=== PATIENT | female | born 1945 ===

== ENCOUNTER 2018-11-30 10:33 | Emergency (ER) | payer MEDICARE, OTHER ==
[~2018-11-30 10:33] MED LIST: ACET-1966 PO; CEPH250C37 PO; FLUC200T56 PO; IBUP-56 PO; PENI-24 PO; POTA20TA10 PO; VALA500T63 PO
[2018-11-30] MEDS ORDERED: MORPHINE 2 MG/ML SYR IVP ONE (11:15)
[2018-11-30] MEDS ORDERED: LR(*) 1000 ML BAG 1,000 ML IV ONE (11:15)
--- NOTE | 2018-11-30 11:20 | ER Report ---
History and Physical Time Seen By MD: 10:55 Hx. of Stated Complaint: Patient sent from Cancer center for evaluation for weakness after a liter of fluid was given there. Severe two week history of diarrhea. HPI/ROS CHIEF COMPLAINT: Abdominal pain, diarrhea HISTORY OF PRESENT ILLNESS: Patient is 73-year-old female with history of Hodgkin lymphoma diagnosed in 2016 on her second cycle of ice chemotherapy. Last chemotherapy was November 03. Soon after chemotherapy, patient relates that she developed lower abdominal/pelvic pain that has been persistent and severe. She was seen on 13 November but this pain has not been further evaluated. Approximately 10 days ago she developed diarrhea and fecal incontinence. This has progressed to the point the patient now wears a diaper at all times which she has to change hourly. Pain does not change with diarrhea. The stool is not bloody or black but is malodorous. Patient denies change in urination and denies vaginal bleeding. She has a history of hysterectomy. She has not had fevers or chills, chest pain or trouble breathing. She has been nauseous but no vomiting. She has taken by mouth intake but has become increasingly fatigued and weak. She lives in [place] and drove here today to be seen at the oncology clinic where she received 1 L of IV fluid and when she did not appear better was transferred here for further evaluation. REVIEW OF SYSTEMS: Constitutional: No fever, no chills. Eyes: No discharge. ENT: dry mouth Cardiovascular: No chest pain, no palpitations. Respiratory: No cough, no shortness of breath. Gastrointestinal: above Genitourinary: dark, but not painful urination. Musculoskeletal: no new back pain Skin: skin peeling on hands, experienced after chemo Neurological: generalized, but no focal weakness Remainder of the 14 system rev: Yes Allergies: Coded Allergies: No Known Drug Allergies (Unverified , 06/23/13) Home Meds Active Scripts Na Phos,M-B/Na Phos,Di-Ba (FLEET ENEMA) 133 Ml Enema, 133 ML RC DAILY for 2 Days, #2 BOTTLE Prov:HAIR AGOSTO MD 11/30/18 Reported Medications Ibuprofen (IBUPROFEN) 200 Mg Tablet, 2 TAB PO Q6H, TAB 11/30/18 Acetaminophen (TYLENOL) 325 Mg Tablet, 650 MG PO Q6H, TAB 11/30/18 Fluconazole (FLUCONAZOLE) 200 Mg Tablet, 200 MG PO QDAY 11/30/18 Valacyclovir Hcl (VALACYCLOVIR) 500 Mg Tablet, 500 MG PO BID 11/30/18 Penicillin V Potassium 500 Mg Tab (PENICILLIN V POTASSIUM 500 MG TAB) 500 Mg Tablet, 500 MG PO BID, TAB 11/30/18 Potassium Chloride (Potassium Chloride) 20 Meq Tablet.er, PO BID 11/30/18 Reviewed Nurses Notes: Yes Old Medical Records Reviewed: Yes Hx Smoking: Yes Exposure to Second Hand Smoke?: No Hx Substance Use Disorder: No Hx Alcohol Use: No Constitutional Vital Sign - Last 24 Hours 11/30/18 11/30/18 11/30/18 11/30/18 10:43 10:45 11:00 11:15 Temp 97.4 Pulse 51 52 56 57 Resp 16 B/P (MAP) 150/81 133/66 (88) Pulse Ox 96 95 94 98 O2 Delivery Room Air 11/30/18 11/30/18 11/30/18 11/30/18 11:30 11:45 12:45 13:00 Pulse 53 57 55 B/P (MAP) 128/83 (98) 147/76 (99) Pulse Ox 93 92 91 11/30/18 11/30/18 11/30/18 13:15 13:30 13:45 Pulse 54 55 56 B/P (MAP) 141/71 (94) Pulse Ox 91 95 94 Physical Exam General Appearance: The patient is alert, has no immediate need for airway protection and no signs of toxicity. Eyes: conjunctival pallor, perrl ENT, Mouth: mm dry, op wnl Respiratory: There are no retractions, lungs are clear to auscultation. Cardiovascular: Regular rate and rhythm. Gastrointestinal: Abdomen is soft and non tender, no masses, bowel sounds normal, with exception of suprapubic ttp and possible mass - fecal incontinence. Hemorrhoid without e/o acute inflammation Neurological: no gross cn deficits Skin: Warm and dry, peeling exanthem on fingers Musculoskeletal: Neck is supple non tender. Extremities are nontender, nonswollen and have full range of motion. DIFFERENTIAL DIAGNOSIS: After history and physical exam differential diagnosis was considered for c dif, other infectious diarrhea, colitis, divercitulitis, or other acute abd emergency, severe dehydration Medical Decision Making Data Points Laboratory Hematology Test 11/30/18 11:15 11/30/18 11:33 Clostridium Difficile Toxin A & B Negative Clostridium difficile Antigen Positive Urine Color Yellow Urine Clarity Clear Urine pH 5.0 pH (4.8-9.5) Urine Specific [place] 1.032 Urine Protein 100 mg/dL (NEGATIVE) Urine Glucose (UA) Negative mg/dL (NEGATIVE) Urine Ketones Negative mg/dL (NEGATIVE) Urine Blood Negative (NEGATIVE) Urine Nitrite Negative (NEGATIVE) Urine Bilirubin Negative (NEGATIVE) Urine Urobilinogen 2.0 mg/dL (0.2-1.9) Urine Leukocyte Esterase Negative (NEGATIVE) Urine RBC None /HPF (0-2/HPF) Urine WBC 2 /HPF (0-5/HPF) Urine Squamous Epithelial Cells None /LPF (NONE-FEW) Urine Bacteria Negative /HPF (NONE-FEW) Urine Mucus Few /HPF (NONE-FEW) Chemistry Test 11/30/18 11:15 11/30/18 11:33 Clostridium Difficile Toxin A & B Negative Clostridium difficile Antigen Positive Urine Color Yellow Urine Clarity Clear Urine pH 5.0 pH (4.8-9.5) Urine Specific [place] 1.032 Urine Protein 100 mg/dL (NEGATIVE) Urine Glucose (UA) Negative mg/dL (NEGATIVE) Urine Ketones Negative mg/dL (NEGATIVE) Urine Blood Negative (NEGATIVE) Urine Nitrite Negative (NEGATIVE) Urine Bilirubin Negative (NEGATIVE) Urine Urobilinogen 2.0 mg/dL (0.2-1.9) Urine Leukocyte Esterase Negative (NEGATIVE) Urine RBC None /HPF (0-2/HPF) Urine WBC 2 /HPF (0-5/HPF) Urine Squamous Epithelial Cells None /LPF (NONE-FEW) Urine Bacteria Negative /HPF (NONE-FEW) Urine Mucus Few /HPF (NONE-FEW) Urinalysis Test 11/30/18 11:33 Urine Color Yellow Urine Clarity Clear Urine pH 5.0 pH (4.8-9.5) Urine Specific [place] 1.032 Urine Protein 100 mg/dL (NEGATIVE) Urine Glucose (UA) Negative mg/dL (NEGATIVE) Urine Ketones Negative mg/dL (NEGATIVE) Urine Blood Negative (NEGATIVE) Urine Nitrite Negative (NEGATIVE) Urine Bilirubin Negative (NEGATIVE) Urine Urobilinogen 2.0 mg/dL (0.2-1.9) Urine Leukocyte Esterase Negative (NEGATIVE) Urine RBC None /HPF (0-2/HPF) Urine WBC 2 /HPF (0-5/HPF) Urine Squamous Epithelial Cells None /LPF (NONE-FEW) Urine Bacteria Negative /HPF (NONE-FEW) Urine Mucus Few /HPF (NONE-FEW) ED Course/Re-evaluation ED Course Pt presents with weakness, fatigue, diarrhea and fecal incontinence initially concerning for invasive/infectious diarrhea. However, fecal studies without blood and though cdif antigen present, this is not indicative of infection. Imaging shows fecal impaction. Ultimately, this is likely source of overflow diarrhea and incontinence. I performed bedside disimpaction with release of significant stool burden. I recommend enema x 2 for further evacuation, continued hydration, and close f/u. I informed pt that until anal sphincter is able to 'reset', she may have continued incontinence. Pt understands SRP's. Pt also feels sig improved after hydration. Decision to Disposition Date: Nov 30, 2018 Decision to Disposition Time: 14:00 Depart Departure Latest Vital Signs Vital Signs Date Time Temp Pulse Resp B/P (MAP) Pulse Ox O2 Delivery O2 Flow Rate FiO2 11/30/18 13:45 56 94 11/30/18 13:30 141/71 (94) 11/30/18 10:43 97.4 16 Room Air Impression: Primary Impression: Fecal impaction Additional Impression: Dehydration Condition: Improved Disposition: HOME OR SELF-CARE [facility]errals: [facility] Follow up with your primary doctor in 2-3 days for re-evaluation, or [facility] if unable to follow up with primary doctor New Scripts Na Phos,M-B/Na Phos,Di-Ba (FLEET ENEMA) 133 Ml Enema 133 ML RC DAILY for 2 Days, #2 BOTTLE Prov: HAIR AGOSTO MD 11/30/18 Patient Instructions: Fecal Impaction (ED) Additional Instructions: I recommend you attempt one enema today and one tomorrow. Please return if you are having worsening pain, dehydration, or any concerns. Problem Qualifiers HAIR AGOSTO MD Nov 30, 2018 11:19
[2018-11-30] MEDS ORDERED: IOPAMIDOL 76% 75 ML INFUS BTL 75 ML ONE (11:36)
--- NOTE | 2018-11-30 12:48 | RADIOLOGY IMAGING REPORT ---
FACILITY: [facility] PATIENT NAME: Miroslava Thrasher : 1945 MR: [id number] V: [id number] EXAM DATE: ORDERING PHYSICIAN: HAIR AGOSTO TECHNOLOGIST: Location: [facility] Patient: Miroslava Thrasher : 1945 Visit/Account:[id number] Date of Sevice: 11/30/2018 COMPUTED TOMOGRAPHY OF THE Abdomen and Pelvis with CONTRAST INDICATION: Lower abdominal tenderness. TECHNIQUE: Contiguous axial 3.[address] images were obtained through the abdomen and pelvis 75 cc [id number]. Coronal and sagittal reformatted images were submitted. COMPARISON: None. FINDINGS: Lung bases: Reticulation at the lung bases is [id number] and likely reflects fibrotic change, w hich is nonspecific but could be from aspiration. Liver and hepatic vasculature: Mild fatty infiltration adjacent to falciform. No ascites. The hepati c and portal veins are well opacified. Gallbladder and bile ducts: Normal Spleen: Normal Pancreas: The main pancreatic duct is mildly prominent but is not frankly dilated. There is no obstr ucting mass or stone. Adrenals: Normal Kidneys, ureters and bladder: Enhancement is heterogeneous and both kidneys. There is no perinephric stranding. No stone. No hydronephrosis. A few gas bubbles anteriorly within the bladder are nonspeci fic but could be from recent catheterization or instrumentation. Retroperitoneum and aorta: Moderate aortic atherosclerosis. No aneurysm. GI tract, mesentery and peritoneum: No bowel obstruction. Large rectal stool ball. No findings of div erticulitis. Uterus and adnexa: Unremarkable uterus. Bones and soft tissues: Severe multilevel disc and endplate degenerative findings with mild sigmoidal curvature of the lumbar spine. There is also severe multilevel facet arthropathy. No acute osseous a bnormality. IMPRESSION: 1. Heterogeneous enhancement of both renal cortices, though nonspecific, most likely reflects infecti on. There is also a small volume of gas anteriorly within the bladder. This could be from recent cath eterization/instrumentation. A gas forming organism could technically also be a source. Correlate wit h urinalysis. 2. Large rectal stool ball. One of the following dose optimization techniques was utilized in the performance of this exam: Autom ated exposure control; adjustment of the mA and/or kV according to the patient's size; or use of an i terative reconstruction technique. Specific details can be referenced in the facility's radiology C T exam operational policy. Report Dictated By: Princess Wren MD at 11/30/2018 12:30 PM Report E-Signed By: Princess Wren MD at 11/30/2018 12:45 PM WSN:[id number]
[2018-11-30] MEDS ORDERED: DIAZEPAM 2 MG TAB PO ONE (13:25)
[2018-11-30 13:30] VITALS: BP 141/71
[2018-11-30] MEDS ORDERED: NA P133E21 RC (13:55)
[2018-11-30] MEDS ORDERED: HEPARIN FLSH (PORT) 500 UN/5ML IVP ONE (14:10)
== END 2018-11-30 14:29 | disposition home or self-care (01) ==
LOC: ER 10:50
DX: K56.41 Fecal impaction (principal); E86.0 Dehydration
CPT/HCPCS: 74177; 81001; 87324; 87449; 96361; 96374; 99284; A4353; A9270; J1642; J2270; J7120; Q9967

== ENCOUNTER 2018-12-25 11:00 | Outpatient (RCR) | payer MEDICARE, OTHER ==
[2018-10-02 15:56] VITALS: BP 109/69
--- NOTE | 2018-10-03 15:25 | ONCOLOGY CONSULTATION ---
EVENT DATE: October 02, 2018 REASON FOR CONSULTATION Ms. Thrasher is a very pleasant 72-year-old female with a history of mixed cellularity Hodgkin lymphoma that presents with relapse in the neck. HISTORY OF PRESENT ILLNESS Miroslava presents for initial consultation. Her history is outlined below. She has experienced growths of conglomerate left neck nodes for approximately three months. She thought this was related to saliva gland or hernia in the neck. She had other respiratory and allergy issues and sought treatment at [facility]. These issues have improved with that treatment. However, the neck nodes did not shrink so she is seeking further evaluation. Biopsy was done at her home in [place], [place], which confirmed relapsed mixed cellularity Hodgkin lymphoma. This is CD30 positive, CD20 negative. Her biggest issue today is difficulty of breathing. She states she has to push on the right side of her neck to help breathe. She and her are both getting concerned about her breathing ability. They do not described apnea but I am extremely concerned that she would have significant apnea given the tumor and the fact that in the awake seated position she is having wheezing and difficulty breathing. As a result, I think it is pertinent that we get her down for immediate treatment. ONCOLOGY HISTORY Her history begins in 2015 when she was diagnosed with mixed cellularity Hodgkin lymphoma. She received five cycles (ten doses) of classic ABVD chemotherapy. She tolerated this poorly and was not able to tolerate next cycle due to multiple side effects. At the interim scan, she had a complete response with a Deauville score of 1 to 2 by report. I have not seen these images myself but it appears she had an outstanding response. Unfortunately, however, she now relapse in September 2018 and requires aggressive treatment. PAST MEDICAL HISTORY Pertinent for mixed cellularity Hodgkin lymphoma first diagnosed in 2014 and treated with five cycles of ABVD with relapse in September 2018. She has no pertinent heart, kidney or liver issues. She does have a history of significant allergies and lung issues and has been treated at [facility] previously. SOCIAL HISTORY Patient is and has presented with her today. She is friends with one of my patients from [facility] and that is part of the reason why she was referred to me today. FAMILY HISTORY Noncontributory. REVIEW OF SYSTEMS CONSTITUTIONAL: Positive fevers and non-drenching night sweats. Positive weight loss of a small amount, she believes. Borderline B symptoms as a result. HEENT: No headache, vision changes. NEUROLOGIC: No focal neurological deficits, headaches or other symptoms of concern. CARDIOVASCULAR: No chest pain, dyspnea on exertion, edema. RESPIRATORY: No shortness of breath, wheezing or cough. GI: No nausea, vomiting, diarrhea or constipation. : No dysuria or hematuria. MUSCULOSKELETAL: Positive fatigue. No significant weakness. ENDOCRINE: No heat or cold intolerance. PSYCHIATRIC: No anxiety or depression. LYMPHATIC: Other than the left neck node, she denies any other concerning lumps or bumps. The remainder of 14-point review of systems is otherwise negative. PHYSICAL EXAMINATION VITAL SIGNS: Blood pressure 109/69, pulse 86, respiratory rate 16, temperature 98.3 Fahrenheit, oxygen saturation 96% on room air, weight 5.83 kilograms. Pain 07/07. Fatigue 07/07. GENERAL: Stable condition but mild respiratory distress today. ECOG PERFORMANCE STATUS: 1. HEENT: She has a large conglomerate neck mass that is at least 4 to 5 cm in diameter. This is displacing her trachea, I believe, based on the exam. CV: Regular rate and rhythm. No murmur, rub or gallop. LUNGS: Clear. She does have a history of lung issues, high IgE and other issues but these are currently under control. Her lungs sound excellent today. ABDOMEN: Soft, nontender, nondistended. No organomegaly. No splenomegaly in particular. LYMPHATIC: Other than the left cervical nodes, I do believe I feel a right axillary node. NEUROLOGIC: No focal deficits. PSYCHIATRIC: Normal mood and affect. The remainder of physical exam is otherwise unremarkable. IMPRESSION/REPORT/PLAN Ms. Thrasher is a pleasant 72-year-old female with the followin. Relapsed mixed cellularity Hodgkin lymphoma, CD30 positive, CD20 negative. 2. Large left neck lymphadenopathy displacing the trachea. 3. Respiratory distress due to the above. 4. History of allergies and has been seen at [facility] for treatment. I had an excellent discussion today with Miroslava and her . I am very concerned about her. We discussed the natural history, treatment options for relapsed Hodgkin lymphoma. The prognosis is potentially for cure if we are able to give chemotherapy and then proceed with autologous stem cell transplant. We discussed autologous stem cell transplant in detail today as well. At this time though, I believe we need to get her down to [facility] to begin steroids, have radiation oncology consultation to consider radiation to the left neck as well as start chemotherapy immediately. We will need to consult with my radiation colleagues to determine the sequence that is ideal for her. Unless we get shrinkage of the tumor, I think her first cycle needs to be inpatient. If we do radiation therapy and get adequate shrinkage, we could transition to outpatient therapy. I had a very excellent discussion with them. I arranged for inpatient admission today. They are going to be going immediate to [facility] and we will see them in the hospital with our care team. I answered all of their many questions today. Billing: New patient, level 5. Total time 90 minutes, counseling time 60. MTDD
[2018-11-13 09:57] VITALS: BP 99/59
[2018-11-13 12:26] LABS: PLATELET COUNT, AUTOMATED 62 K/uL (150-450)
[2018-11-13 15:13] VITALS: BP 113/53
[2018-11-13 15:30] VITALS: BP 113/55
[2018-11-13 17:14] VITALS: BP 116/69
[2018-11-13 17:37] VITALS: BP 110/59
[2018-11-13 19:08] VITALS: BP 129/71
--- NOTE | 2018-11-14 05:17 | SCHUSTER ONCOLOGY NOTE ---
EVENT DATE: November 13, 2018 CHIEF COMPLAINT/REASON FOR VISIT Ms. Thrasher is a pleasant 73-year-old female with a history of mixed- cellularity Hodgkin lymphoma that is on cycle 2 of ICE chemotherapy for relapsed disease. HISTORY OF PRESENT ILLNESS Miroslava returns. I saw her back in September with her initial relapse. She was admitted immediately down at [facility] in [place] and received her first cycle of ICE therapy as an inpatient during that admission. She had a large left-sided neck mass that was displacing her airway and causing wheezing. We were worried about respiratory compromise, and thus we treated her quickly with steroids and chemotherapy. She had dramatic response with no palpable disease present after one cycle. We plan to finish the second cycle and get a PET scan in hopes that she is in complete response and then can transition to autologous stem cell transplant in [place]. She has a [id number], CD20- negative Hodgkin lymphoma. She is approximately cycle 2 day 8 today and is having maximum side effects including fatigue. Her biggest complaint is mucositis. I plan to prescribe a Miracle Mouthwash, which will hopefully help her many symptoms. She is having hemorrhoid bleeding, pain and discomfort as well. I do advise Epsom salt baths as well as the Tucks wipes to try to help with relieve there as well. Fatigue, as stated, is a 10/10. Her blood pressure is low, with a marginally elevated pulse rate as well at rest. Plan to give her fluids and check her labs today, which are currently pending. ONCOLOGY HISTORY Her history begins in 2015 when she was diagnosed with mixed cellularity Hodgkin lymphoma. She received five cycles (ten doses) of classic ABVD chemotherapy. She tolerated this poorly and was not able to tolerate next cycle due to multiple side effects. At the interim scan, she had a complete response with a Deauville score of 1 to 2 by report. I have not seen these images myself but it appears she had an outstanding response. Unfortunately, however, she now relapse in September 2018 and requires aggressive treatment. PAST MEDICAL HISTORY Pertinent for mixed cellularity Hodgkin lymphoma first diagnosed in 2014 and treated with five cycles of ABVD with relapse in September 2018. She has no pertinent heart, kidney or liver issues. She does have a history of significant allergies and lung issues and has been treated at [facility] previously. SOCIAL HISTORY Patient is and has presented with her today. She is friends with one of my patients from [place] and that is part of the reason why she was referred to me today. FAMILY HISTORY Noncontributory. REVIEW OF SYSTEMS CONSTITUTIONAL: Positive severe fatigue. Positive weight loss. The non- drenching night sweats have improved. No fevers. HEENT: No headache or vision changes. NEUROLOGIC: No focal neurological deficits. CARDIOVASCULAR: No chest pain, dyspnea on exertion, or edema. RESPIRATORY: No shortness of breath, wheezing or cough. GASTROINTESTINAL: Positive pain with defecation. She has significant mucositis. Positive mouth sores. GENITOURINARY: Positive dysuria. No hematuria. ENDOCRINE: No heat or cold intolerance. PSYCHIATRIC: No anxiety or depression. She is having a hard time with the severity of her symptoms right now. Hopefully this is the last cycle, however. No other concerning findings. The remainder of 14-point review of systems is otherwise negative. PHYSICAL EXAMINATION VITAL SIGNS: Blood pressure 99/59, pulse 83, respiratory rate 16, temperature 97.7 Fahrenheit, oxygen saturation 97% on room air. Pain 8/10 in the bowels. Fatigue 10/10. GENERAL: Stable condition, resting comfortably in the chair. HEENT: Normocephalic, atraumatic. NEUROLOGIC: No focal deficits. CARDIOVASCULAR: Regular rate and rhythm. LUNGS: Clear. GASTROINTESTINAL: No nausea or vomiting. Positive suprapubic lower abdominal pain. Positive mouth sores. ENDOCRINE: No heat or cold intolerance. PSYCHIATRIC: No anxiety or depression. LYMPHATIC: Resolution of her lymph nodes with some scarring on the left neck where she had the large lymphatic mass. The remainder of physical exam is otherwise unremarkable. IMPRESSION/REPORT/PLAN Ms. Thrasher is a pleasant 73-year-old female with the following: Relapsed mixed cellularity Hodgkin lymphoma, CD30 positive, CD20 negative. She is responding brilliantly well to ICE therapy, but is at the maximum symptoms from cycle 2 of ICE chemotherapy today. I plan to check her labs including electrolytes and give her fluids today. She may need electrolyte replacement as well. We are starting pentamidine given the profound myelosuppression. She continues on her preventive antibiotics as well, including acyclovir and fluconazole. She has a sulfa allergy, hence we are using the pentamidine. Hopefully we will get improvement in her symptoms over this week. She has a PET scan scheduled for later this week before [place]. If this is negative, I recommend she recover and then transition to autologous stem cell transplant in [place]. Answered all of their many questions today. BILLING Return visit, level 5. Total time 45 minutes, counseling time 35. MTDD
[2018-11-14 09:02] VITALS: BP 149/84
[2018-11-14 10:06] LABS: PLATELET COUNT, AUTOMATED 48 K/uL (150-450)
[2018-11-30 09:06] VITALS: BP 134/77
[2018-11-30 09:08] LABS: PLATELET COUNT, AUTOMATED 479 K/uL (150-450)
--- NOTE | 2018-12-01 22:33 | ONCOLOGY FOLLOW UP NOTE ---
EVENT DATE: November 30, 2018 CHIEF COMPLAINT Followup for recurrent Hodgkin lymphoma. HISTORY OF PRESENT ILLNESS Patient is a 73-year-old female who was seen today as a work-in. She was treated with two cycles of ICE in [place], last received 11/06/18. She has been very weak in the interim. Today, she presents in significant distress. She has had "uncontrollable diarrhea" for two weeks. Stool has a very strong odor. She complains of some lower abdominal pain. She has noted some rectal bleeding and has had mouth sores. Hands are very dry and previously peeled, requiring treatment with dexamethasone. Her urine is dark. She is tentatively scheduled for a PET scan on 12/06/18, but is unsure whether she will be able to do this. ONCOLOGY HISTORY Patient was diagnosed with mixed cellularity Hodgkin lymphoma in 2014, treated with five cycles of ABVD with relapse in September 2018. Underwent two cycles of ICE chemotherapy in [place] as she had a large left-sided neck mass displacing her airway and causing wheezing. She received her last cycle on 11/06/18 with a dramatic response in treatment. Plan is to get a PET scan on 12/06/18 in hopes of pursuing an autologous stem cell transplant. Hodgkin was CD4 positive, CD20 negative. MEDICAL HISTORY Hodgkin lymphoma 2015 with relapse in September 2018. FAMILY HISTORY Noncontributory. SOCIAL HISTORY Patient is . They have grown children. She and her live in [place], [place]. She does not smoke. MEDICATIONS 1. Fluconazole 200 mg daily. 2. Penicillin VK 500 mg b.i.d. 3. Potassium chloride 20 mEq b.i.d. 4. Valacyclovir 500 mg b.i.d. ALLERGIES No known drug allergies. REVIEW OF SYSTEMS A 12-point review of systems is performed and is negative except as stated above. PHYSICAL EXAMINATION VITAL SIGNS: Weight is not taken. BP 134/77, P 86, R 16, temp 98.5, O2 sat 96%. GENERAL: Patient is a well-developed, but ill-appearing female who is in pain. HEAD: Normocephalic, atraumatic. EYES: Sclerae anicteric. MOUTH: Dry mucous membranes. No lesions. NECK: Supple. No palpable masses or adenopathy. CARDIOVASCULAR: Heart rate regular, 86 per minute, without murmur, S3, or S4. LUNGS: Slightly diminished due to poor effort, but otherwise clear. ABDOMEN: Soft with hypoactive bowel sounds. Exam is limited by discomfort. EXTREMITIES: No edema. NEUROLOGIC: Nonfocal. SKIN: Peeling hands bilaterally, previously blistered. LABORATORIES CBC today reveals WBC of 15.1, ANC of 12.4, hemoglobin 9.4, hematocrit 27.9, platelets 479,000. CMP is pending. IMPRESSION AND PLAN The patient is a 73-year-old female diagnosed with mixed cellularity Hodgkin lymphoma in 2014. She relapsed in September 2018 with a large left-sided neck mass displacing her airway and causing wheezing, treated with two cycles of ICE chemotherapy in [place]. 1. Hodgkin lymphoma. Patient is seen as a work-in today. She did have a remarkable response to treatment with two cycles of ICE. Plan is for her to have a PET scan on 12/06/18 if she is able and will follow up with Dr. Alston after that. 2. Gastrointestinal. Describes uncontrollable diarrhea for the past two weeks with a very strong odor. She does have lower abdominal pain. I have reviewed this with our emergency room physician, and she is sent to the Emergency Room for a more complete workup. Patient and her are in agreement. 3. Hydration. Urine is dark. She relates she has not been eating or drinking much. She was hydrated with 1 L of normal saline before transfer to the Emergency Room. 4. Follow up on 12/04/18 for continued care. At that time, we will see if she is able to go for her PET scan on 12/06/18. HAYLEY
[~2018-12-25] VITALS: Ht 160 cm; Wt 54.7 kg
[~2018-12-25 11:00] MED LIST changes: +ALBUTEROL 8 GM INHALER INH PRN; +ALTEPLASE RECOMB 2 MG VIAL IVP PRN; +DEXTROSE 5%(*) 100 ML BAG 100 ML IVPB PRN; +HEPARIN FLSH (PORT) 500 UN/5ML IVP PRN; +LIDOCAINE/SOD BICARB 8.4% SYR ID PRN; +NA P133E21 RC; +NS(*) 0.9% 100 ML BAG 100 ML IVPB PRN; +NS(*) 0.9% 1000 ML BAG 1,000 ML IV PRN; +NS(*) 0.9% 500 ML BAG 500 ML IV PRN; +PENTAMIDINE 300 MG INH ONE; +POTASSIUM CHL 20 MEQ TABCR PO ONE; +WATER FOR INJ,STERILE 20 ML IVP PRN
[2018-12-25 11:05] VITALS: BP 119/71
--- NOTE | 2018-12-26 06:12 | ONCOLOGY FOLLOW UP NOTE ---
EVENT DATE: December 25, 2018 CHIEF COMPLAINT/REASON FOR VISIT Miroslava is a very pleasant 73-year-old female with relapsed Hodgkin lymphoma, having received two cycles of ICE chemotherapy in the salvage setting, here for followup. HISTORY OF PRESENT ILLNESS Miroslava returns. Since her last visit, she had a PET scan done in [place] which showed profound response to her disease in general after two cycles, but she does have a persistent area of disease. It is amenable to radiation; however, I discussed with Dr. Obregon, and there is concern about effects on stem cell collection if we pursued radiation at this time. We could take her straight to transplant, although the ideal situation is to have her in complete remission before doing that. Thus, we discussed about the consideration of utilizing two cycles of brentuximab and then reevaluating her for transplant. We had an extensive discussion today about the importance of transplant for cure in the second-line setting. Without it, I would estimate the chance of cure to be quite low. During her second cycle, she had numerous complications. Most importantly, she was hospitalized with bowel impaction. This was quite hard for her, but with excellent supportive care by the hospitalist team here, this was able to be improved, and she is now doing much better. She continues to recover and feels excellent. She is discouraged by the fact that her disease is not completely eradicated, but is pleased with how much it has improved. ONCOLOGY HISTORY Her history begins in 2016 when she was diagnosed with mixed cellularity Hodgkin lymphoma. She received five cycles (ten doses) of classic ABVD chemotherapy. She tolerated this poorly and was not able to tolerate next cycle due to multiple side effects. At the interim scan, she had a complete response with a Deauville score of 1 to 2 by report. I have not seen these images myself but it appears she had an outstanding response. Unfortunately, however, she now relapse in August/September 2018 and requires aggressive treatment. PAST MEDICAL HISTORY Pertinent for mixed cellularity Hodgkin lymphoma first diagnosed in 2014 and treated with five cycles of ABVD with relapse in September 2018. She has no pertinent heart, kidney or liver issues. She does have a history of significant allergies and lung issues and has been treated at [facility] previously. SOCIAL HISTORY Patient is and has presented with her today. She is friends with one of my patients from [place] and that is part of the reason why she was referred to me today. FAMILY HISTORY Noncontributory. MEDICATIONS None. REVIEW OF SYSTEMS CONSTITUTIONAL: No fevers, chills, or significant weight change recently. She has lost weight overall. HEENT: No headache or vision changes. CARDIOVASCULAR: No chest pain, dyspnea on exertion, or edema. RESPIRATORY: No shortness of breath, wheezing or cough. GASTROINTESTINAL: No nausea or vomiting. She has had improvement since her discharge from the hospital. ENDOCRINE: No heat or cold intolerance. PSYCHIATRIC: No anxiety or depression. SKIN: No concerning rashes or lesions. NEUROLOGIC: No headache or weakness. PSYCHIATRIC: No anxiety or depression. The remainder of 14-point review of systems is otherwise negative. PHYSICAL EXAMINATION VITAL SIGNS: Blood pressure 119/71, pulse 73, respiratory rate 16, temperature 98.2 Fahrenheit, oxygen saturation 94% on room air. Weight 74.2 kg, pain 0/10, fatigue 0/10. GENERAL: Stable condition, resting comfortably in the chair. ABDOMEN: Soft and nontender. LYMPHATIC: Exam deferred. Full physical exam deferred today due to amount of time spent in counseling and coordination of care and this extensive discussion today. Her labs were reviewed in detail as well, including with the patient. IMPRESSION/REPORT/PLAN Ms. Thrasher is a very pleasant 73-year-old female with the following: * Relapsed Hodgkin lymphoma. She had excellent response to two cycles of ICE, although therapy was quite difficult for her. She is not yet in complete remission, and there is an area of residual disease seen on the PET scan. I reviewed the imaging with Dr. Obregon last week and reviewed the report with Miroslava and her family today. We have underlying options now. As her therapy was quite hard, we could simply observe, but I would recommend hospice, as the chance of relapse is 100% based on recent scan. We could utilize focal radiation therapy to the area of disease as a palliative measure. Alternatively, we can consider two cycles of brentuximab to increase the chance of complete remission and then move forward with autologous stem cell transplant. She has a friend that has gone through transplant with Dr. Obregon and would like to move forward with this option, she believes. She states that if you had asked her two weeks ago, she was "done"; however, this was during the time of her bowel impaction, which is now much improved. We will arrange for two cycles of brentuximab and then repeat evaluation, potentially in [place], in preparation for stem cell transplant. Answered all of their many questions today. High risk, high complexity. Discussed with Dr. Obregon as well. BILLING Return visit, level 5. Total time 60 minutes, counseling and coordination of care time 40 minutes. [facility]
== END 2018-12-31 ==
LOC: ONC 11:00
PROVIDERS: ATTEND Internal Medicine
DX: C81.21 Mixed cellularity Hodgkin lymphoma, lymph nodes of head, face, and neck (principal); R59.0 Localized enlarged lymph nodes; R53.83 Other fatigue; R19.7 Diarrhea, unspecified; R10.9 Unspecified abdominal pain
CPT/HCPCS: 36415; 36430; 82784; 83615; 83735; 84100; 85025; 86850; 86900; 86901; 86920; 94640; A9270; G0463; J7030; P9016; 82040; 82247; 82310; 82374; 82435; 82565; 82947; 84075; 84132; 84155; 84295; 84450; 84460; 84520; 96360; 99202; 99212; J3535

== ENCOUNTER → 2019-04-09 | Outpatient (RCR) | payer MEDICARE, OTHER ==
[2019-01-10 09:51] VITALS: BP 132/67
[2019-01-10] MEDS: NS(*) 0.9% 500 ML BAG 500 ML IV PRN (10:15)
[2019-01-10] MEDS: DEXAMETHASONE SOD PHOS 10MG/ML IVP PRN (11:26)
[2019-01-10] MEDS: ACETAMINOPHEN 325 MG TAB PO PRN (11:26)
[2019-01-10 12:41] VITALS: BP 116/72
[2019-01-10] MEDS: HEPARIN FLSH (PORT) 500 UN/5ML IVP PRN (12:50)
--- NOTE | 2019-01-10 19:32 | ONCOLOGY CHEMO TEACHING ---
DATE OF EVENT: January 10, 2019 DIAGNOSIS Relapsed Hodgkin lymphoma. The patient and her are seen today for chemotherapy teaching. A total of 60 minutes was spent with them, 100% of which was [id number] counseling. HISTORY OF PRESENT ILLNESS Patient is a 73-year-old female who was seen today to initiate treatment with brentuximab. We spent some time discussing the plan which would include two cycles of brentuximab, possibly followed by transplant. At this time, she is unsure about the transplant, but agrees to "give the brentuximab a try." Overall, she has been feeling fairly well. Energy has improved. Her weight is stable. Her bowels are now working normally. She does not have any new complaints. ONCOLOGY HISTORY Her history begins in 2015 when she was diagnosed with mixed cellularity Hodgkin lymphoma. She received five cycles (10 doses) of classic ABVD chemotherapy. She tolerated this poorly and was not able to tolerate the next cycle due to multiple side effects. At the interim scan, she had a complete response with a Deauville score of 1 to 2 by report. I have not seen these images myself, but it appears she had an outstanding response. Unfortunately, she relapsed in September 2018 and requires aggressive treatment with ICE. She had significant toxicities from this, and a long recovery. PET scan showed profound improvement although there was a persistent area of disease. Began brentuximab on 01/10/19. Plan is to complete two cycles with consideration of transplant after that, although patient states she is "taking it one step at a time". MEDICAL HISTORY Hodgkin lymphoma 2015 with relapse in September 2018. FAMILY HISTORY Noncontributory. SOCIAL HISTORY Patient is . They have grown children. She and her live in [place], [place]. She does not smoke. MEDICATIONS Valacyclovir 500 mg b.i.d. ALLERGIES No known drug allergies. DISCUSSION 1. A total of 60 minutes was spent in counseling today, 100% of which was face to face. At today's chemotherapy teaching session, we discussed her diagnosis as well as the planned regimen and toxicities associated with brentuximab. Handouts of this drug were provided and reviewed in detail. 2. Side effects and toxicities of chemotherapy agents included, but were not limited to: A. Bone marrow suppression, specifically neutropenia. She is instructed to contact our offices with any signs of infection. CBC will be monitored routinely. We discussed common sense approaches including routine hand washing and avoidance of crowds/sick people if neutropenic. We also reviewed that anemia and thrombocytopenia can occur. She will be monitored closely. B. GI side effects. Discussed the possibility of nausea, vomiting, diarrhea and constipation. She will receive IV antiemetics and will be prescribed antiemetics for home use. If she were to have diarrhea, recommended Imodium. If she were to have constipation, recommended Senna-S or MiraLAX routinely. Further interventions will be made based on side effects. C. side effects. Discussed the importance of adequate hydration (minimum 8 cups of fluid per day) and emptying the bladder on a regular basis. IV hydration can be scheduled as needed. D. Skin toxicity. Discussed that chemotherapy was very drying to the skin and mucous membranes. Recommended routine moisturizing as well as sun protection. E. Neurotoxicity. Discussed symptoms of peripheral neuropathy. She will be monitored of these symptoms and will notify us if progressive. F. Fatigue. Discussed that this is one of the most common complaints of patients undergoing chemotherapy. I have encouraged her to remain as active as possible, taking frequent rests as needed. G. Infusion reaction. Reviewed IV premedications. She will be monitored closely during infusions. 3. I have instructed the patient to call our office if she is prescribed any new medications. It is recommended that multiple supplements or herbal medications may not be taken as these may interfere with the action of the chemotherapy. 4. Discussed dietary issues associated with chemotherapy including anorexia and changes in taste. A handout of nutrition information is given. 5. Office contact information ([phone]) is given. I have encouraged the patient to call with any issues regarding treatment. 6. A tour of the infusion room is given. She is given a packet of information including all of the above. She will begin cycle #1 of brentuximab today. Labs will be done in [place] on 01/19/19 or 01/22/19. She will follow up with Dr. Alston on 01/29/19. She will be scheduled for cycle #2 of brentuximab on 01/31/19. MTDD
[2019-01-31 09:35] VITALS: BP 139/75
[2019-01-31] MEDS: HEPARIN FLSH (PORT) 500 UN/5ML IVP PRN (09:43)
[2019-01-31] MEDS: NS(*) 0.9% 500 ML BAG 500 ML IV PRN (09:43)
[2019-01-31] MEDS: DEXAMETHASONE SOD PHOS 10MG/ML IVP PRN (10:12)
[2019-01-31] MEDS: ACETAMINOPHEN 325 MG TAB PO PRN (10:12)
--- NOTE | 2019-01-31 21:25 | ONCOLOGY FOLLOW UP NOTE ---
EVENT DATE: January 31, 2019 DIAGNOSIS Relapsed Hodgkin lymphoma. CHIEF COMPLAINT Followup visit for ongoing care and initiation of Cycle #2 with brentuximab. HISTORY OF PRESENT ILLNESS This is a 73-year-old woman who showed profound response to her disease in general after two cycles of ICE chemotherapy, though she did have persistent area of disease. This was noted on recent PET scan done in [place]. The area is amenable to radiation; however, there is concern about effects on stem cell collection if we pursue radiation. Option was to take her straight to transplant, although the ideal situation would be to have her in complete remission before doing that. Thus, she has been initiated on brentuximab every three weeks with a plan to administer two cycles and then reevaluating for transplant. Currently, she reports that she is still unsure about the transplant, but has agreed to try brentuximab with the proposed two cycles as noted above. She reports that overall she has been feeling fairly well, and her energy and appetite and weight are all stable. Her bowels are now working normally. She denies any pain at all. She is aware of the importance for transplant for cure in the second line setting, and without it, estimations of cure rate would be overall quite low. ONCOLOGY HISTORY Her history begins in 2015 when she was diagnosed with mixed cellularity Hodgkin lymphoma. She received five cycles (10 doses) of classic ABVD chemotherapy. She tolerated this poorly and was not able to tolerate the next cycle due to multiple side effects. At the interim scan, she had a complete response with a Deauville score of 1 to 2 by report. I have not seen these images myself, but it appears she had an outstanding response. Unfortunately, she relapsed in September 2018 and requires aggressive treatment with ICE. She had significant toxicities from this and a long recovery. PET scan showed profound improvement, although there was a persistent area of disease. Began brentuximab on 01/10/19. Today will be Cycle #2. Plan will be for consideration of transplant after this cycle. PAST MEDICAL HISTORY 1. Hodgkin lymphoma 2014 with relapse in September 2018. More specifically, this is pertinent for mixed cellularity Hodgkin lymphoma, first diagnosed 2014, treated with five cycles of ABVD, followed by relapsing September 2018. She has no pertinent heart, kidney, or liver issues or disease. 2. She does have a history of significant allergy and lung issues and has been treated at [facility] previously. FAMILY HISTORY Noncontributory. SOCIAL HISTORY Patient is . They have grown children. She and her live in [place], [place]. She does not smoke. MEDICATIONS Valacyclovir 500 mg b.i.d. ALLERGIES No known drug allergies. REVIEW OF SYSTEMS A 12-point review of systems is performed and is negative except as stated above. She denies any fevers, chills, or signs of infection. She reports a good appetite and states that she is eating and drinking well. She believes her weight is stable. She is eating small, frequent meals throughout the day. She denies any stomatitis. She denies any rash. She has some fatigue, but overall reports that her energy levels are better than compared to previous chemotherapy regimens, and she is managing well. From a neuropathy standpoint, she does report some intermittent tingling in her feet/toes bilaterally. This has been present since prior lines of chemotherapy. PHYSICAL EXAMINATION VITAL SIGNS: Weight 55.2 kg, up from previous 54.8 kg on 01/10/19. T 97.7, BP 139/75, P 90, R 16, oxygen saturation 95% room air. GENERAL: This is a pleasant 73-year-old woman who appears well hydrated, well nourished, and is in no acute distress. HEAD: Atraumatic, normocephalic. EYES: Sclerae anicteric. MOUTH: Moist mucous membranes. No signs of stomatitis or mucositis. No ulcerations or lesions. NECK: Supple. No adenopathy. No JVD. LUNGS: Clear breath sounds to auscultation bilaterally with diminished bases. CARDIOVASCULAR: Heart rate regular with normal rhythm. No ectopy. EXTREMITIES: No edema. NEUROLOGIC: Patient is awake, alert, and oriented times three. PSYCHIATRIC: Patient is in good spirits. Mood and affect are appropriate and within normal limits. DERM: Cursory examination does not reveal any suspicious lesions or rash. No petechiae or wide-spread purpura. I did examine her bilateral lower extremities as the patient did mention a rash, although she was actually talking about a previous rash on prior lines of chemotherapy. No rash on examination today. LABORATORY CBC today: WBC 3.7, ANC 1.8, hemoglobin 12.2, hematocrit 35.9%, platelets 190,000. CMP today: Sodium normal at 139, potassium normal at 4.1, serum creatinine normal at 0.80, calcium normal at 9.0. LFTs today within normal limits. Protein to include albumin within normal limits today. IMPRESSION AND PLAN Mrs. Thrasher is a very pleasant 73-year-old woman with a history of Hodgkin lymphoma, now relapsed Hodgkin lymphoma. She is status post five cycles of ABVD and two cycles of ICE. She had an excellent response overall after her two cycles of ICE, although that therapy was quite difficult for her. She did end up with bowel impaction after her second cycle of ICE and was hospitalized for a short time. She is not yet in complete remission, and there is an area of residual disease seen on most recent PET scan. She has met with her transplant oncologist, Dr. Obregon. He and Dr. Alston have reviewed her imaging. She was given several options, to include observation, hospice referral, focal radiation therapy to the area of disease, or two cycles or brentuximab followed by re-evaluation for transplant. She is aware that this last option would increase her chance of complete remission. The plan would be move forward with autologous stem cell transplant after two cycles. Patient agreed to proceed with two cycles of brentuximab and will be receiving her second cycle today. She has a friend who has gone through transplant with Dr. Obregon and as such ended up deciding to move forward with that option, though today during followup, she tells me that she is still not 100% decided on this route, though will re-evaluate this at her followup with Dr. Alston. She appears to have tolerated her first cycle of brentuximab quite well. 1. Relapsed Hodgkin lymphoma: Patient to proceed with her second cycle of brentuximab today. 2. Neutropenia, grade 1/2. ANC today at 1800. Reviewed neutropenic precautions with patient. She is aware of signs and symptoms and when to call our office. For now, she is afebrile nontoxic-appearing. There are no signs or symptoms of infection, and will simply continue to monitor this. Discussed that neutropenia can be seen in 10% or greater of patients receiving brentuximab therapy. 3. Again discussed treatment options with patient today. She is aware of her situation, but wants to take this slowly. 4. Patient will return to the clinic in three weeks for followup with Dr. Alston. She will have CBC and other appropriate labs on that day. Plan at that time will be to re-evaluate for consideration of autologous stem cell transplant with Dr. Obregon. [facility]
[2019-02-19 12:22] VITALS: BP 112/74
--- NOTE | 2019-02-20 11:47 | [facility] ONCOLOGY NOTE ---
EVENT DATE: February 19, 2019 CHIEF COMPLAINT/REASON FOR VISIT Ms. Thrasher is a pleasant 73-year old female here prior to cycle #3 of brentuximab therapy for relapsed Hodgkin's lymphoma. HISTORY OF PRESENT ILLNESS Miroslava returns. She is here today after two cycles of brentuximab therapy, which we gave when her PET scan in [facility] showed profound response to two cycles of ICE chemotherapy but a small area of persistent disease. It is amenable to radiation and I strongly recommend autologous stem cell transplant as her highest likelihood of cure. She states today repeatedly that "I am terrified of transplant and radiation". We discussed alternative options extensively and reviewed my recommendation to pursue transplant. We could continue the brentuximab but she did note increased side effects, particularly with the second dose. Her peripheral neuropathy is still present at this time from the second dose. She had more fatigue and skin rash as well with some blisters she states. No blisters are present at the time of my exam today. She does state that when she gets them she tends to pick at them, which likely makes them worse. If we do not proceed with transplant or radiation therapy, both of which would be my preferred therapies, we could continue palliative brentuximab. Alternatively, we could consider nivolumab. She understands that these therapies are unlikely to be curative, although possible. I would estimate cure to be less than 10% at best. After this discussion, she continues to express that she is too terrified of transplant and radiation to consider these therapies. She states that her pulmonary fibrosis discovery is the main reason she is not interested in transplant. ONCOLOGY HISTORY Her history begins in 2015 when she was diagnosed with mixed cellularity Hodgkin lymphoma. She received five cycles (ten doses) of classic ABVD chemotherapy. She tolerated this poorly and was not able to tolerate next cycle due to multiple side effects. At the interim scan, she had a complete response with a Deauville score of 1 to 2 by report. I have not seen these images myself but it appears she had an outstanding response. Unfortunately, however, she now relapse in August/September 2018 and requires aggressive treatment. PAST MEDICAL HISTORY Pertinent for mixed cellularity Hodgkin lymphoma first diagnosed in 2014 and treated with five cycles of ABVD with relapse in September 2018. She has no pertinent heart, kidney or liver issues. She does have a history of significant allergies and lung issues and has been treated at [facility] previously. SOCIAL HISTORY Patient is and has presented with her today. She is friends with one of my patients from [place] and that is part of the reason why she was referred to me today. FAMILY HISTORY Noncontributory. REVIEW OF SYSTEMS CONSTITUTIONAL: No fevers, chills. She still has alopecia, although her eyelashes and other hair is starting to grow back. CARDIOVASCULAR: Regular rate and rhythm. RESPIRATORY: No shortness of breath, wheezing or cough. GASTROINTESTINAL: No nausea, vomiting or diarrhea. : No dysuria or hematuria. MUSCULOSKELETAL: No weakness or joint pain. Positive fatigue. NEUROLOGIC: Positive numbness in the hands and feet with the second cycle of brentuximab. PSYCHIATRIC: Positive anxiety about treatment. No depression. The remainder of 14-point review of systems is otherwise negative. PHYSICAL EXAMINATION VITAL SIGNS: Blood pressure 112/74, pulse 61, respiratory rate 16, temperature 98.1 Fahrenheit, oxygen saturation 90% on room air. Weight 55.3 kg, pain 0/10, fatigue 0/10. GENERAL: Stable condition, resting comfortably in the chair. HEENT: Normocephalic, atraumatic. CARDIOVASCULAR: Regular rate and rhythm. LUNGS: Clear. LYMPHATIC: No appreciable cervical, supraclavicular or axillary adenopathy. I feel no area of disease under her prior area of relapse in the left neck supraclavicular area. ABDOMEN: Soft, nontender. EXTREMITIES: No clubbing, cyanosis or edema. SKIN: Positive alopecia still. Remainder of physical exam is otherwise unremarkable. IMPRESSION/REPORT/PLAN Ms. Thrasher is a very pleasant 73-year-old female with the following: Relapsed Hodgkin lymphoma. She had excellent response to two cycles of ICE, although therapy was quite difficult and she was not yet in complete remission. We then pursued two cycles brentuximab, which she tolerated decently but had more fatigue and peripheral neuropathy with the second cycle. We are going to need to make a dose adjustment. She had hospitalization not long ago with bowel impaction and at that time she felt that she was "done with any therapy". She no longer feels that way. However, she is "too terrified" to pursue autologous stem cell transplant or radiation therapy. We did discuss that I think it is important for her to continue some form of therapy and we could continue brentuximab at a lower dose. We discussed how we do have palliative nivolumab as well. I stressed that I do recommend autologous stem cell transplant as the most likely therapy for cure and other treatments would likely be palliative only. Without any treatment, I would recommend Hospice. I answered all of her questions today. We plan to more forward with brentuximab with a 25% dose reduction moving forward given the significant peripheral neuropathy that is still present today after two cycles. I answered all of her questions. We will see her with each cycle. BILLING Return visit, level 4. Total time 30 minutes, counseling time 20. MTDD
[2019-02-26 10:47] VITALS: BP 134/68
[2019-02-26] MEDS: DEXAMETHASONE SOD PHOS 10MG/ML IVP PRN (12:26)
[2019-02-26] MEDS: ACETAMINOPHEN 325 MG TAB PO PRN (12:26)
[2019-02-26] MEDS: NS(*) 0.9% 500 ML BAG 500 ML IV PRN (12:27)
[2019-02-26] MEDS: HEPARIN FLSH (PORT) 500 UN/5ML IVP PRN (14:06)
[2019-02-26 14:15] VITALS: BP 127/81
--- NOTE | 2019-02-26 14:58 | RADIOLOGY IMAGING REPORT ---
FACILITY: [facility] [place] PATIENT NAME: Miroslava Thrasher : 1945 MR: [id number] V: [id number] EXAM DATE: ORDERING PHYSICIAN: JAI CHAUDHRY TECHNOLOGIST: Location: [facility] Patient: Miroslava Thrasher : 1945 Visit/Account:[id number] Date of Sevice: 02/26/2019 Exam type: CHEST PA LAT History: Crackles and lower lobes with shortness of breath Comparison: CT on pelvis November 30, 2018 Findings: There are emphysematous changes throughout the lungs in addition to coarse linear changes most promin ent in the lower lung wilder. Similar findings were present on the prior CT of abdomen and pelvis fr om November 30, 2018.. There is no evidence of pleural effusions. The cardiac silhouette is normal in size. Some implanted right-sided port with the distal tip in superior vena cava. IMPRESSION: 1. Emphysematous changes throughout the lungs Coarse linear changes are most prominent in the lower lung wilder although a similar finding was seen on the prior CT there for these changes may all be chronic although a superimposed acute infectious/ inflammatory process on a background scarring cannot be entirely ruled out in light of the clinical h istory Report Dictated By: Emily Meyers MD at 02/26/2019 2:52 PM Report E-Signed By: Emily Meyers MD at 02/26/2019 2:55 PM WSN:[id number]
--- NOTE | 2019-03-01 15:48 | Oncology Note ---
I called pt today and reviewed recent CXR results by phone. She's feeling better and her cough is better. She used an OTC nasal steroid spray which helped. Informed her that CXR shows chronic findings thought an inflammatory or infectious process can't totally be ruled out. She's been afebrile and has a Hx of pulmonary fibrosis. We'll hold off on antibiotics. She'll alert us if she has any temperature of 100.5 or greater or for any worsening cough. JAI Ward APRN,BLOOD BANK COORDINATOR Mar 01, 2019 15:48
--- NOTE | 2019-03-02 02:40 | ONCOLOGY FOLLOW UP NOTE ---
EVENT DATE: March 01, 2019 CHIEF COMPLAINT/REASON FOR VISIT Ms. Thrasher is a pleasant 73-year old female here for follow-up and Cycle #3 of brentuximab therapy for relapsed Hodgkin lymphoma. This will be her first cycle with a 25% dose reduction per Dr. Alston, secondary to significant peripheral neuropathy that is still present after two cycles. HISTORY OF PRESENT ILLNESS Miroslava returns. She is here today after two cycles of brentuximab therapy, which we gave when her PET scan in [place] showed profound response to three cycles of ICE chemotherapy but a small area of persistent disease. It is amenable to radiation, and we have recommended autologous stem cell transplant as her highest likelihood of cure. She has been reluctant and has voiced this in the past, and most recently, when she followed up with Dr. Alston, she apparently reported to him that she was "terrified of transplant and radiation." They discussed alternative options extensively and again reviewed his recommendation to pursue transplant. We could continue the brentuximab, but she did not increased side effects, particularly after her second dose. Her peripheral neuropathy is still present at this time from the second dose. She has also had more fatigue and skin rash as well as some blisters. There are no blisters on exam today, however. She reports that when she gets them, she tends to pick at them, which makes them worse. If we do not proceed with transplant and radiation therapy, both of which would be Dr. Alston's preferred therapies, we could continue with palliative brentuximab. Alternatively, we could also consider nivolumab. The patient understands that these therapies are unlikely to be curative, although possible. We would estimate her cure to be less than 10% at best. After her most recent followup discussion with Dr. Alston, patient reported that she is still too terrified of transplant and radiation to consider these therapies. She reports that her pulmonary fibrosis discovery is the main reason that she is not interested in transplant. As such, plan has been made for her to continue with brentuximab, though at a 25% dose reduction, which will be started today with her third cycle. ONCOLOGY HISTORY Her history begins in 2015 when she was diagnosed with mixed-cellularity Hodgkin lymphoma. She received five cycles (ten doses) of classic ABVD chemotherapy. She tolerated this poorly and was not able to tolerate next cycle due to multiple side effects. At the interim scan, she had a complete response with a Deauville score of 1 to 2 by report. I have not seen these images myself, but it appears she had an outstanding response. Unfortunately, however, she relapsed in August/September 2018 and requires aggressive treatment. PAST MEDICAL HISTORY Pertinent for mixed cellularity Hodgkin lymphoma, first diagnosed in 2014 and treated with five cycles of ABVD with relapse in September 2018. She has no pertinent heart, kidney or liver issues. She does have a history of significant allergies and lung issues and has been treated at [facility] previously. FAMILY HISTORY Noncontributory. SOCIAL HISTORY Patient is and has presented with her today. She is friends with one of my patients from [place], and that is part of the reason why she was referred to me today. ALLERGIES No known drug allergies. MEDICATIONS Reviewed per chart. REVIEW OF SYSTEMS CONSTITUTIONAL: Patient denies any recent fevers, chills, or night sweats. She still has alopecia, although her eyelashes and other hair is starting to grow back. She has had some fatigue. HEENT: She denies any vision changes. She has had some nasal drainage, which is clear. No epistaxis. No mucositis. CARDIOVASCULAR: She denies any palpitations or chest pain. No syncope or presyncope. RESPIRATORY: She continues to have a cough, though reports that this may be worse in the last few weeks. It is slightly more productive and more noticeable. Her tells me that he's noticed her coughing more. She is using [id number] measures such as lozenges. She denies any shortness of breath or noticeable wheezes. GASTROINTESTINAL: No abdominal pain. No nausea, vomiting, constipation, or diarrhea. No bright red blood per rectum, or melena. She reports that her appetite has improved in the last couple of weeks. : She denies any dysuria, hematuria, or genitourinary discharge. MUSCULOSKELETAL: No focal areas of pain. NEUROLOGIC: She continues to report some numbness in her hands and feet bilaterally, which began with a second cycle of brentuximab and persists today. No headaches. No seizure-like activity. ENDOCRINE: She denies any heat or cold intolerance. She does note fatigue. Her believes that she has been a bit more fatigued lately, as he has noticed her sleeping a bit more. PSYCH: This is positive for anxiety regarding treatment and overall disease. She denies any depression, suicidal ideation, or homicidal ideation. The remainder of a 12-point review of systems is performed today and is otherwise negative. PHYSICAL EXAMINATION VITAL SIGNS: Temperature 97.4, pulse 58, respirations 16, BP 134/68, oxygen saturation 96% on room air. GENERAL: This is a pleasant 73-year-old woman who appears well hydrated, well nourished, and in no acute distress. HEAD: Normocephalic, atraumatic. EYES: Sclerae anicteric. ENT/MOUTH: No mucositis. No suspicious lesions. No signs of thrush. NECK: Supple. No lymphadenopathy. No JVD. CARDIOVASCULAR: Slightly bradycardic today, with regular rhythm. No ectopy. LUNGS: Diminished breath sounds with crackles noted at the bases bilaterally. No wheezes or rales. Respiratory effort is normal. ABDOMEN: Soft, nontender, nondistended. Bowel sounds positive x4. No organomegaly. EXTREMITIES: No edema. No clubbing or cyanosis. DERM: Positive for alopecia. No obvious blisters or skin rash on exam today. LABORATORY CBC today: WBC 6.8, ANC 4.6, hemoglobin 12.6, hematocrit 38.3%, platelets 183,000. CMP today: Completely normal. IMAGING CT abdomen and pelvis with contrast at [facility] on 11/30/2018: (1) Heterogenous enhancement of both renal cortices, though nonspecific, most likely reflects infection. There is a small volume of gas anteriorly within the bladder. This could be from recent catheterization/instrumentation. A gas- forming organism could technically also be a source. Correlate with urinalysis. (2) Large rectal stool ball. IMPRESSION AND PLAN Ms. Thrasher is a very pleasant 73-year-old female with relapsed Hodgkin lymphoma. She had excellent response to two cycles of ICE, although therapy was quite difficult and she was not yet in complete remission. We then pursued two cycles brentuximab, which she tolerated decently but had more fatigue and peripheral neuropathy with the second cycle. We are going to need to make a dose adjustment. She had hospitalization not long ago with bowel impaction, and at that time she felt that she was "done with any therapy." She no longer feels that way, though she reports that she is "too terrified" to pursue autologous stem cell transplant or even radiation therapy. She had a discussion with Dr. Alston last week and is aware of the importance for her to continue some form of therapy, and we could continue brentuximab at a lower dose. They have also discussed palliative nivolumab as well. Again, we did stress our recommendations for autologous stem cell transplant as the most curative likely therapy for her, and also discussed that other treatments would likely be palliative only in nature. Without any treatment, we would recommend hospice. Patient has elected to proceed forward with brentuximab, but we are going to dose-reduce secondary to her peripheral neuropathy. 1. Relapsed Hodgkin lymphoma, currently on brentuximab: Patient will proceed with her third cycle today, at a 25% dose reduction. We will continue this dose reduction with all cycles going forward. 2. Cough: Lung exam does reveal crackles, change from last visit. She does have a history of pulmonary fibrosis. Her cough is slightly worse, and her believes that she is sleeping a bit more. She is afebrile and nontoxic appearing, but I do want to rule out infectious etiology or potential infectious etiology, so I have ordered a chest x-ray two-view to be done today. We will notify her with results tomorrow or the next day, once results are back. I did offer prophylactic antibiotics, though again, she does have history of underlying pulmonary fibrosis. She is extremely reluctant to start any kind of therapy, and tells me that she would refuse antibiotics at this time. She states that she will certainly inform me if her temperature rises, though again, she is afebrile. For now, I have instructed her on different [id number] self-care measures, and she will continue with lozenges, throat sprays, and others as needed. She and her were alerted to let me know if she becomes more tired or even lethargic. 3. We will continue on her current treatment. She will return to the clinic in three weeks for followup and to initiate Cycle #4 with single-agent brentuximab. MTDD
[2019-03-19 10:45] VITALS: BP 128/61
[2019-03-19] MEDS: ACETAMINOPHEN 325 MG TAB PO PRN (12:11)
[2019-03-19] MEDS: DEXAMETHASONE SOD PHOS 10MG/ML IVP PRN (12:12)
[2019-03-19] MEDS: HEPARIN FLSH (PORT) 500 UN/5ML IVP PRN (13:39)
[2019-03-19 13:40] VITALS: BP 115/82
[2019-03-19] MEDS: NS(*) 0.9% 500 ML BAG 500 ML IV PRN (13:41)
--- NOTE | 2019-03-20 07:46 | ONCOLOGY FOLLOW UP NOTE ---
EVENT DATE: March 19, 2019 CHIEF COMPLAINT Ms. Thrasher is a pleasant 73-year old female here for follow-up and Cycle #4 of brentuximab therapy for relapsed Hodgkin lymphoma. This will be her second cycle with a 25% dose reduction, secondary to significant peripheral neuropathy, which is still present after two cycles. HISTORY OF PRESENT ILLNESS Miroslava returns. She is here today after two cycles of brentuximab therapy, which we gave when her PET scan in [place] showed profound response to three cycles of ICE chemotherapy but a small area of persistent disease. It is amenable to radiation, and we have recommended autologous stem cell transplant as her highest likelihood of cure. She has been reluctant and has voiced this in the past, and most recently, when she followed up with Dr. Alston, she apparently reported to him that she was "terrified of transplant and radiation." They discussed alternative options extensively and again reviewed his recommendation to pursue transplant. We could continue the brentuximab, but she did not increased side effects, particularly after her second dose. Her peripheral neuropathy is still present at this time from the second dose. She has also had more fatigue and skin rash as well as some blisters. There are no blisters on exam today, however. She reports that when she gets them, she tends to pick at them, which makes them worse. If we do not proceed with transplant and radiation therapy, both of which would be Dr. Alston's preferred therapies, we could continue with palliative brentuximab. Alternatively, we could also consider nivolumab. The patient understands that these therapies are unlikely to be curative, although possible. We would estimate her cure to be less than 10% at best. After her most recent followup discussion with Dr. Alston, patient reported that she is still too terrified of transplant and radiation to consider these therapies. She reports that her pulmonary fibrosis discovery is the main reason that she is not interested in transplant. As such, plan has been made for her to continue with brentuximab, though at a 25% dose reduction. Today will be her fourth cycle total and will be her second cycle thus far with the dose reduction. Miroslava tells me that she feels well. She has not had any changes since our last visit. She does still have some postnasal drip and general nasal drainage. She did try some pvra-bbj-bqjdtul Nasacort but she did not notice much relief. She reports that she still has a chronic cough which she has noticed now during the day in addition to at night. She tells me that she actually feels well, however, and notices only clear sputum. She is reluctant to try any antibiotics even though she did have a chest x-ray after our last visit, which showed that this could be inflammatory versus infectious in nature. She denies any fevers. She is interested in starting an sgre-kbh-mfmoeki supplement called Vitalyze, which is a supplement that could help her pulmonary fibrosis. Lastly, she reports that she had a fall a couple of weeks ago secondary to her neuropathy. She tells me that she was walking, balance was stable and steady and she simply could not feel her foot from underneath her and this caused her to fall. She reports that she sustained a couple of abrasions on her face, which have all now healed. She reports that she did hit her head but did not have any loss of consciousness and tells me that she felt fine afterwards. She simply had some soreness the day after. She did not notify our office nor did she seek any medical attention. She feels that this has largely resolved and she has recovered from this. ONCOLOGY HISTORY Her history begins in 2015 when she was diagnosed with mixed-cellularity Hodgkin lymphoma. She received five cycles (ten doses) of classic ABVD chemotherapy. She tolerated this poorly and was not able to tolerate next cycle due to multiple side effects. At the interim scan, she had a complete response with a Deauville score of 1 to 2 by report. I have not seen these images myself, but it appears she had an outstanding response. Unfortunately, however, she relapsed in August/September 2018 and requires aggressive treatment. PAST MEDICAL HISTORY Pertinent for mixed cellularity Hodgkin lymphoma, first diagnosed in 2014 and treated with five cycles of ABVD with relapse in September 2018. She has no pertinent heart, kidney or liver issues. She does have a history of significant allergies and lung issues and has been treated at [facility] previously. FAMILY HISTORY Noncontributory. SOCIAL HISTORY Patient is and has presented with her today. She is friends with one of my patients from [place], and that is part of the reason why she was referred to me today. ALLERGIES No known drug allergies. MEDICATIONS Reviewed per chart. REVIEW OF SYSTEMS CONSTITUTIONAL: Patient denies any recent fevers, chills, or night sweats. HEENT: She denies any vision changes. She has had some nasal drainage, which is clear. No epistaxis. No mucositis. She tried Nasacort [id number] with not much relief. CARDIOVASCULAR: She denies any palpitations or chest pain. No syncope or presyncope. RESPIRATORY: She continues to have a cough with some clear sputum. She has noticed that this has worsened in the last few weeks and now has cough during the day in addition to at night. She reports that this is mostly dry, although several times a day has some clear sputum. She is coughing a bit now. She uses pvan-xlx-fymlpzu measures such as lozenges. She does have some dyspnea one exertion at baseline. She denies any wheezes or shortness of breath. She remains anxious about her pulmonary fibrosis. GASTROINTESTINAL: No abdominal pain. No nausea, vomiting, constipation, or diarrhea. No bright red blood per rectum, or melena. She reports that her appetite has improved in the last couple of weeks. : She denies any dysuria, hematuria, or genitourinary discharge. MUSCULOSKELETAL: No focal areas of pain. NEUROLOGIC: She continues to report some numbness in her hands and feet bilaterally, most noticeable in her feet. This began with her second cycle of brentuximab and persists today. No headaches. No seizure-like activity. Neuropathy is quite bothersome for her. She did have a fall related to this a couple of weeks ago. See HPI. ENDOCRINE: She denies any heat or cold intolerance. She does note fatigue. Her believes that she has been a bit more fatigued lately, as he has noticed her sleeping a bit more. PSYCH: This is positive for anxiety regarding treatment and overall disease. She denies any depression, suicidal ideation, or homicidal ideation. The remainder of a 12-point review of systems is performed today and is otherwise negative. PHYSICAL EXAMINATION VITAL SIGNS: Weight 57.2 kg today, up from 56.3 kg on February 26, 2019. T 98.2, P 84, R 16, BP 128/61, oxygen saturation 93% room air. GENERAL: This is a pleasant 73-year-old woman who appears well hydrated, well nourished, and in no acute distress. HEAD: Normocephalic, atraumatic. EYES: Sclerae anicteric. ENT/MOUTH: No mucositis. No suspicious lesions. No signs of thrush. NECK: Supple. No lymphadenopathy. No JVD. CARDIOVASCULAR: Regular rate and rhythm. No ectopy. LUNGS: Diminished breath sounds overall with crackles noted at the bases bilaterally. No wheezes or rales. Respiratory effort is normal. ABDOMEN: Soft, nontender, nondistended. Bowel sounds positive x4. No organomegaly. EXTREMITIES: No edema. No clubbing or cyanosis. DERM: No obvious blisters or skin rash on exam today. She does report having occasional blisters or bumps noticeable throughout treatment but none on exam today. PSYCH: Mood and affect are appropriate. LABORATORY CBC today: WBC 5.9, ANC 3.8, hemoglobin 12.9, hematocrit 38.6%, platelets 179,000. CMP today: Unremarkable with exception of mildly elevated glucose of 118. Serum creatinine is 0.80. Calcium, bilirubin and LFTs are all normal. IMAGING Chest x-ray, PA and lateral on February 26, 2019: 1. Emphysematous changes throughout the lungs. 2. Coarse linear changes are most prominent in lower lung wilder, although a similar finding was seen on prior CT. Therefore, these changes may all be chronic, although a super-imposed acute infectious/inflammatory process on a background scarring cannot be entirely ruled out in light of the clinical history. CT [place] [facility] [place]: (1) Heterogenous enhancement of both renal cortices, though nonspecific, most likely reflects infection. There is a small volume of gas anteriorly within the bladder. This could be from recent catheterization/instrumentation. A gas-forming organism could technically also be a source. Correlate with urinalysis. (2) Large rectal stool ball. IMPRESSION AND PLAN Ms. Thrasher is a very pleasant 73-year-old female with relapsed Hodgkin lymphoma. She had excellent response to two cycles of ICE, although therapy was quite difficult and she was not yet in complete remission. We then pursued two cycles brentuximab, which she tolerated decently but had more fatigue and peripheral neuropathy with the second cycle. We are going to need to make a dose adjustment. She had hospitalization not long ago with bowel impaction, and at that time she felt that she was "done with any therapy." She no longer feels that way, though she reports that she is "too terrified" to pursue autologous stem cell transplant or even radiation therapy. She had a discussion with Dr. Alston last week and is aware of the importance for her to continue some form of therapy, and we could continue brentuximab at a lower dose. They have also discussed palliative nivolumab as well. Again, we did stress our recommendations for autologous stem cell transplant as the most curative likely therapy for her, and also discussed that other treatments would likely be palliative only in nature. Without any treatment, we would recommend hospice. Patient has elected to proceed forward with brentuximab, but with a dose- reduction secondary to her peripheral neuropathy. 1. Relapsed Hodgkin lymphoma, currently on brentuximab: Patient will proceed with her fourth cycle today, at a 25% dose reduction. We will continue this dose reduction with all cycles going forward. 2. Cough: Lung exam does still reveal some crackles at the bases. She does have a history of pulmonary fibrosis. She continues to note a cough with some occasional clear sputum. She is afebrile and nontoxic appearing. I did call her after her last visit to discuss her chest x-ray results. Patient is extremely reluctant to try any antibiotics. She assures me that she will notify me if her cough worsens or if she becomes febrile. I again discussed findings from the chest x-ray. 3. Neuropathy: Grade 2/3 persists, most noticeable on her feet, although she has this on her hands and feet. She did have a fall approximately two weeks ago due to not feeling where she was going. Discussed that there are some medications that may help the neuropathy, although this will likely be chronic and will not completely resolve. I also discussed the potential for life-long residual neuropathy related to treatment. She is not on any other medications and tells me that she is actually willing to try medication. We also discussed potentially using a cane just to have for peace of mind, not necessarily for balance. She would rather try medication to see if this will help her neuropathy. We discussed options to include gabapentin, Lyrica or something like Cymbalta, which could help her neuropathy and can also help with generalized musculoskeletal pain and mood. We discussed side effects and rationale for all of these. She is extremely reluctant to try gabapentin or Lyrica but would be more willing to try Cymbalta, so I have e-prescribed this today, and given her instructions to take one capsule, low dose at 30 mg daily. Discussed that she will need to take this for a couple of weeks prior to seeing any effect. Discussed that this is an SNRI and mood changes may be noticeable. She will notify us if her mood changes or worsens. I did not call in any refills so that we can see how she tolerates this over the next month. 4. She will return to the clinic in three weeks for followup and to initiate Cycle #5 with brentuximab. She is scheduled to follow up with Dr. Alston for an office visit on April 16, 2019. 5. She is questioning a supplement called Vitalyze. I explained to patient that I would need to look up the ingredients and discuss this with our pharmacist for any potential interaction. For now, I've instructed her not to take this. MTDD
[~2019-04-09] MED LIST changes: -ALBUTEROL 8 GM INHALER INH PRN; +BRENTUXIMAB VEDOTIN IV ONE; +DULO30CA6 PO; -HEPARIN FLSH (PORT) 500 UN/5ML IVP PRN; +NS 0.9% IV ONE; -NS(*) 0.9% 1000 ML BAG 1,000 ML IV PRN; -NS(*) 0.9% 500 ML BAG 500 ML IV PRN; -PENTAMIDINE 300 MG INH ONE; -POTASSIUM CHL 20 MEQ TABCR PO ONE
[2019-04-09 10:36] VITALS: BP 114/70
[2019-04-09] MEDS: DEXAMETHASONE SOD PHOS 10MG/ML IVP PRN (11:37)
[2019-04-09] MEDS: ACETAMINOPHEN 325 MG TAB PO PRN (11:37)
[2019-04-09] MEDS: HEPARIN FLSH (PORT) 500 UN/5ML IVP PRN (14:24)
--- NOTE | 2019-04-10 04:41 | ONCOLOGY FOLLOW UP NOTE ---
EVENT DATE: April 09, 2019 CHIEF COMPLAINT Ms. Thrasher is a pleasant 73-year old female here for follow-up and Cycle #5 of brentuximab therapy for relapsed Hodgkin lymphoma. This will be her third cycle with a 25% dose reduction, secondary to significant peripheral neuropathy, which is still present after two cycles. HISTORY OF PRESENT ILLNESS Miroslava returns. She is here today after two cycles of brentuximab therapy, which we gave when her PET scan in [place] showed profound response to three cycles of ICE chemotherapy but a small area of persistent disease. It is amenable to radiation, and we have recommended autologous stem cell transplant as her highest likelihood of cure. She has been reluctant and has voiced this in the past, and most recently, when she followed up with Dr. Alston, she apparently reported to him that she was "terrified of transplant and radiation." They discussed alternative options extensively and again reviewed his recommendation to pursue transplant. We could continue the brentuximab, but she did not increased side effects, particularly after her second dose. Her peripheral neuropathy is still present at this time from the second dose. She has also had more fatigue and skin rash as well as some blisters. There are no blisters on exam today, however. She reports that when she gets them, she tends to pick at them, which makes them worse. If we do not proceed with transplant and radiation therapy, both of which would be Dr. Alston's preferred therapies, we could continue with palliative brentuximab. Alternatively, we could also consider nivolumab. The patient understands that these therapies are unlikely to be curative, although possible. We would estimate her cure to be less than 10% at best. After her most recent followup discussion with Dr. Alston, patient reported that she is still too terrified of transplant and radiation to consider these therapies. She reports that her pulmonary fibrosis discovery is the main reason that she is not interested in transplant. As such, plan has been made for her to continue with brentuximab, though at a 25% dose reduction. Today will be her fifth cycle total, and her third cycle thus far with the dose reduction. Miroslava reports feeling well overall. She has not had any changes since her last visit, and has not had any further falls. She does still have some neuropathy, though. She picked up the Cymbalta prescription, though did not start this. She tells me it is pretty much the same, and she is waiting until this worsens. She has occasional postnasal drip. She recently changed her diet to omit meat. She has a chronic cough which is much more noticeable now during the day. She has not had any fevers. She does have some clear sputum. She is reluctant to try antibiotics, even though a chest x-ray recently did show either inflammation versus infectious nature. She started using an frhr-vpb-ftneusy supplement called Vitalyze, which she believes could help her pulmonary fibrosis. She is looking forward to a vacation to [place] in November. ONCOLOGY HISTORY Her history begins in 2015, when she was diagnosed with mixed-cellularity Hodgkin lymphoma. She received five cycles (ten doses) of classic ABVD chemotherapy. She tolerated this poorly and was not able to tolerate next cycle due to multiple side effects. At the interim scan, she had a complete response with a Deauville score of 1 to 2 by report. I have not seen these images myself, but it appears she had an outstanding response. Unfortunately, however, she relapsed in August/September 2018 and requires aggressive treatment. PAST MEDICAL HISTORY Pertinent for mixed-cellularity Hodgkin lymphoma, first diagnosed in 2014 and treated with five cycles of ABVD with relapse in September 2018. She has no pertinent heart, kidney or liver issues. She does have a history of significant allergies and lung issues and has been treated at [facility] previously. FAMILY HISTORY Noncontributory. SOCIAL HISTORY Patient is and has presented with her today. She is friends with one of my patients from [place], and that is part of the reason why she was referred to me today. ALLERGIES No known drug allergies. MEDICATIONS Reviewed per chart. REVIEW OF SYSTEMS CONSTITUTIONAL: Patient denies any recent fevers, chills, or night sweats. HEENT: She denies any vision changes. She has had some nasal drainage, which is clear. No epistaxis. No mucositis. She tried Nasacort [id number]-upo-nvgukoe with not much relief. CARDIOVASCULAR: She denies any palpitations or chest pain. No syncope or presyncope. RESPIRATORY: She continues to have a chronic cough with some clear sputum. This is most noticeable during the day. She uses ufyu-obs-iowzsow lozenges as well as a supplement. She has some dyspnea on exertion, largely at baseline. She denies any wheezes or shortness of breath. No hemoptysis. She does have anxiety regarding her pulmonary fibrosis. GASTROINTESTINAL: No abdominal pain. No nausea, vomiting, constipation, or diarrhea. No bright red blood per rectum, or melena. She reports that her appetite has improved in the last couple of weeks. She recently changed her diet and will no longer be eating meat. : She denies any dysuria, hematuria, or genitourinary discharge. MUSCULOSKELETAL: No focal areas of pain. NEUROLOGIC: She continues to report some numbness in her hands and feet bilaterally. This has worsened and persists today. 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 No falls since we saw her last. ENDOCRINE: She denies any heat or cold intolerance. She does note fatigue. Her believes that she has been a bit more fatigued lately, as he has noticed her sleeping a bit more. PSYCH: This is positive for anxiety regarding treatment and overall disease. She denies any depression, suicidal ideation, or homicidal ideation. The remainder of a 12-point review of systems is performed today and is otherwise negative. PHYSICAL EXAMINATION VITAL SIGNS: T 97.6, P 71, R 16, BP 114/70, oxygen saturation 93% room air. GENERAL: In general, this is a pleasant 73-year-old woman who appears well hydrated, well nourished, and is in no acute distress. HEAD: Normocephalic, atraumatic. EYES: Sclerae anicteric. ENT/MOUTH: No mucositis. No suspicious lesions. No signs of thrush. NECK: Supple. No lymphadenopathy. No JVD. CARDIOVASCULAR: Regular rate and rhythm. No ectopy. LUNGS: Diminished breath sounds bilaterally. Crackles are no longer very audible. No wheezes or rales. Respiratory effort is normal. ABDOMEN: Soft, nontender, nondistended. Bowel sounds positive x4. No organomegaly. EXTREMITIES: No edema. No clubbing or cyanosis. DERM: No obvious blisters or skin rash on exam today. She does report having occasional blisters or bumps noticeable throughout treatment but none on exam today. PSYCH: Mood and affect are appropriate. LABORATORY CBC today: WBC 5.7, ANC 3.6, hemoglobin 12.5, hematocrit 37.1%, platelets 173,000. CMP today: Completely normal. IMPRESSION AND PLAN Ms. Thrasher is a very pleasant 73-year-old female with relapsed Hodgkin lymphoma. She had excellent response to two cycles of ICE, although therapy was quite difficult and she was not yet in complete remission. We then pursued two cycles brentuximab, which she tolerated decently but had more fatigue and peripheral neuropathy with the second cycle. We are going to need to make a dose adjustment. She had hospitalization not long ago with bowel impaction, and at that time she felt that she was "done with any therapy." She no longer feels that way, though she reports that she is "too terrified" to pursue autologous stem cell transplant or even radiation therapy. She had a discussion with Dr. Alston last week and is aware of the importance for her to continue some form of therapy, and we could continue brentuximab at a lower dose. They have also discussed palliative nivolumab as well. Again, we did stress our recommendations for autologous stem cell transplant as the most curative likely therapy for her, and also discussed that other treatments would likely be palliative only in nature. Without any treatment, we would recommend hospice. Patient has elected to proceed forward with brentuximab, but with a dose reduction secondary to her peripheral neuropathy. 1. Relapsed Hodgkin lymphoma, currently on brentuximab: Patient will proceed with her fifth cycle today, at a 25% dose reduction. We will continue this dose reduction with all cycles going forward. 2. Cough: Patient has much fewer crackles noted on exam today, and these are hardly audible. She does have a history of pulmonary fibrosis. She may continue to use her vvdv-uko-itwfqwe measures, and currently she is afebrile and nontoxic appearing. We did review her chest x-ray results at last visit. She refuses to try any antibiotics. She is interested in only herbal or homeopathic-type medications. She is taking a supplement over the counter, which she believes is helping her pulmonary fibrosis. 3. Neuropathy: Grade 2/3, persists, mostly constant, and is noticeable in her hands and feet. She did have a fall approximately four weeks ago, which she believes was related to her neuropathy. We discussed potential medications at last visit, and she was open to trying Cymbalta, though today she tells me that she has not started this. She is afraid of the side effects and does not really taking prescription medications. She tells me today that this is her choice, and she will start it when she wants to. We discussed neuropathy at length today as well as risk for permanent residual neuropathy. She verbalized understanding. Will re-evaluate this at next visit. 4. We reviewed her labs today. Patient will return to clinic as scheduled for followup on 04/16/19 with her medical oncologist, Dr. Alston. 5. She will return to clinic in three weeks for followup and to initiate Cycle #6 with brentuximab. 6. Patient is extremely excised about a trip she will be taking with her in November to [place]. She will be gone for six weeks. Today she tells me that she is interested possibly in receiving treatment while there, but I have asked her to discuss this with Dr. Alston at her next visit. Due to her neuropathy, it is likely that we will simply hold treatment while she is on vacation. MTDD
== END ==
LOC: ONC 01-09 16:44
PROVIDERS: ATTEND Nurse Practitioner
DX: Z51.11 Encounter for antineoplastic chemotherapy (principal); C81.21 Mixed cellularity Hodgkin lymphoma, lymph nodes of head, face, and neck; R53.83 Other fatigue; G62.9 Polyneuropathy, unspecified; R05 Cough
CPT/HCPCS: 71046; 85027; 96365; 96367; 96375; 96413; A9270; G0463; J1100; J1642; J7040; J7050; J9042; 82040; 82247; 82310; 82374; 82435; 82565; 82947; 84075; 84132; 84155; 84295; 84450; 84460; 84520; 99212

== ENCOUNTER 2019-07-04 11:00 | Outpatient (RCR) | payer MEDICARE, OTHER ==
[2019-04-16 11:28] VITALS: BP 118/70
--- NOTE | 2019-04-17 14:56 | ONCOLOGY FOLLOW UP NOTE ---
EVENT DATE: April 16, 2019 CHIEF COMPLAINT/REASON FOR VISIT Ms. Thrasher is a very pleasant 73-year-old female for followup after cycle 5 of brentuximab monotherapy for relapsed Hodgkin lymphoma. This will be her third cycle with 25% dose reductions secondary to significant peripheral neuropathy. HISTORY OF PRESENT ILLNESS Miroslava returns. She is here after five cycles of brentuximab therapy, which we began following her PET scan in [place] that showed profound response to three cycles of ICE chemotherapy, but a small area of persistent disease. It was amenable to radiation, and we had recommended autologous stem cell transplant, but she is "terrified of transplant radiation" and would not like to pursue this. She is fully aware that this is the most likely course for care, but she would like to continue her palliative therapy. Her peripheral neuropathy continues to be an issue, and she thinks it continues to worsen with this last cycle. She does have issues mildly with motor issues of the hands, such as buttoning buttons. I discussed with her that we either need to switch to nivolumab monotherapy or reduce the dose of brentuximab. I discussed the immune side effect potential with nivolumab, but also that most patients tolerate it well. Side effects often improve with time with immunotherapy as opposed to chemotherapy, which gets worse. She is very fearful of the unknown and would like to reduce the dose of brentuximab further as she is confident it is working. I do agree with her, and she is due for followup imaging to see how she is doing. Her lungs sound much better, for example. Her was leaning more towards nivolumab therapy, and so we discussed the pros and cons of each extensively and have agreed to continue with the brentuximab at this time, the patient's choice, with a further dose reduction. ONCOLOGY HISTORY Her history begins in 2016 when she was diagnosed with mixed-cellularity Hodgkin lymphoma. She received five cycles (10 doses) of classic ABVD chemotherapy. She tolerated this poorly and was not able to tolerate the next cycle due to multiple side effects. At the interim scan, she had a complete response with a Deauville score of 1 to 2 by report. I have not seen these images myself, but it appears she had an outstanding response. Unfortunately, however, she relapsed in September 2018 and requires aggressive treatment. After three cycles of ICE, she had excellent response, but evidence of persistent disease. Patient declines radiation therapy and autologous stem cell transplant, and instead elects to pursue palliative brentuximab therapy. This has been complicated by neuropathy. PAST MEDICAL HISTORY Pertinent for mixed-cellularity Hodgkin lymphoma, first diagnosed in 2014 and treated with five cycles of ABVD with relapse in September 2018. She has no pertinent heart, kidney, or liver issues. She does have a history of significant allergies and lung issues and has been treated at [facility] previously. FAMILY HISTORY Noncontributory. SOCIAL HISTORY Patient is and has presented with her today. She is friends with one of my patients from [place], and that is part of the reason why she was referred to me today. ALLERGIES No known drug allergies. MEDICATIONS Reviewed per chart. REVIEW OF SYSTEMS CONSTITUTIONAL: No fevers, chills, weight change. HEENT: No headache or vision changes. CARDIOVASCULAR: No chest pain, dyspnea on exertion, or edema. RESPIRATORY: No shortness of breath or wheeze. Positive cough with some productive sputum that is slightly romero. No hemoptysis or other concerns. She feels that her lungs are "getting better." GASTROINTESTINAL: No nausea, vomiting, or diarrhea. GENITOURINARY: No dysuria or hematuria. MUSCULOSKELETAL: No weakness or significant joint pain. PSYCHIATRIC: No anxiety or depression. NEUROLOGIC: Positive sensory and motor deficits due to brentuximab in the hands and feet. She had a single fall approximately a month ago, which she attributes to the neuropathy. SKIN: No concerning abnormalities. Remainder of 14-point review of systems otherwise negative. PHYSICAL EXAMINATION VITAL SIGNS: Blood pressure 118/70, pulse 67, respiratory rate 16, temperature 97.2 Fahrenheit, oxygen saturation 91% on room air. Weight 56.3 kg. Pain 0/10. Fatigue 6/10. GENERAL: Stable condition, resting comfortably in the chair. HEENT: Normocephalic, atraumatic. CARDIOVASCULAR: Regular rate and rhythm. LUNGS: Clear to auscultation bilaterally, including at the bases. Possibly slightly prolonged respiratory sounds with expiration, but mild. ABDOMEN: Soft, nontender, nondistended. LYMPHATIC: No appreciable cervical, supraclavicular, or axillary adenopathy. Remainder of her physical exam was otherwise unremarkable. IMPRESSION/REPORT/PLAN Ms. Thrasher is a very pleasant 73-year-old female with: 1. Relapsed Hodgkin lymphoma, here for followup. She would like to continue with palliative brentuximab with a 50% dose reduction from original dose due to neuropathy. 2. 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 3. Cough. There is concern for pulmonary fibrosis. She had bleomycin in 2016 with her initial diagnosis. Would like to get repeat imaging with a CT scan with contrast to look at her lungs as well as to evaluate for response. 4. We had an extensive discussion today regarding reducing the dose of brentuximab versus moving to palliative nivolumab. I described all of her treatment options, potential side effects, and the natural history of the disease in detail. Her goal is to get to [place] in November 2019 and be gone for six weeks. She feels that she is in remission based on how well she is feeling at this time other than the neuropathy. I answered all of her many questions today. BILLING Return visit level 5. Total time 45 minutes, counseling time 30. High risk, high complexity. MTDD
[2019-04-30 12:05] LABS: PLATELET COUNT, AUTOMATED 181 K/uL (150-450)
[2019-04-30 12:19] VITALS: BP 115/69
[2019-04-30] MEDS: DEXAMETHASONE SOD PHOS 10MG/ML IVP PRN (12:37)
[2019-04-30] MEDS: ACETAMINOPHEN 325 MG TAB PO PRN (12:37)
[2019-04-30] MEDS: NS(*) 0.9% 250 ML BAG 250 ML IVPB PRN (12:37)
[2019-04-30 13:46] VITALS: BP 134/72
[2019-04-30] MEDS: HEPARIN FLSH (PORT) 500 UN/5ML IVP PRN (13:54)
--- NOTE | 2019-05-01 03:02 | ONCOLOGY FOLLOW UP NOTE ---
EVENT DATE: April 30, 2019 CHIEF COMPLAINT Followup for Hodgkin lymphoma. HISTORY OF PRESENT ILLNESS Patient is a 73-year-old female who is seen today for consideration of cycle #6 of brentuximab. This has been dose-reduced by 50% due to ongoing neuropathy. She is generally feeling well and describes her energy as being fair. She has had more neuropathy in her hands than her feet, but recently had acupuncture, which she believes may have helped. She notes some minimal "blisters" on both palms, although these are not painful or pruritic and are not open. She continues with cough. She also has chronic rhinitis. She is using an enzyme to "melt scar tissue," and is hopeful to improve her pulmonary fibrosis. ONCOLOGY HISTORY Patient was diagnosed with mixed-cellularity Hodgkin lymphoma in 2015. She completed five cycles of classic ABVD therapy, but tolerated this poorly and did not complete a total of six cycles. She did have a complete response by report. Unfortunately, she relapsed in August 2018 and required aggressive treatment with ICE. She had significant toxicities from this, along with a long recovery. PET scan in November 2018 showed improvement, although there was a persistent area of disease. Began brentuximab on 01/10/19. She did not want to consider transplant after brentuximab, and is continuing on palliative brentuximab. MEDICAL HISTORY Hodgkin lymphoma, 2015, with relapse in September 2018. FAMILY HISTORY Noncontributory. SOCIAL HISTORY Patient is . They have grown children. She and her live in [place], [place]. She does not smoke. MEDICATIONS None. ALLERGIES No known drug allergies. REVIEW OF SYSTEMS A 12-point review of systems is performed and is negative except as stated above. PHYSICAL EXAMINATION VITAL SIGNS: Blood pressure 135/69, pulse 56, respirations 16, temperature 98.4, O2 saturation 95%. GENERAL: Patient is a well-developed, well-nourished female in no acute distress. HEAD: Normocephalic, atraumatic. EYES: Sclerae anicteric. MOUTH: Moist mucous membranes. No lesions. NECK: Supple. No palpable adenopathy. LUNGS: Diminished bilaterally, but clear. CARDIOVASCULAR: Heart rate regular, 56 per minute, without murmur, S3 or S4. EXTREMITIES: No edema. There are some lesions on both palms, which patient describes as "blisters under the skin." No evidence of erythema or open areas. NEURO: Nonfocal. LABORATORY CBC today reveals a WBC of 4.8, ANC of 2.7, hemoglobin 12.4, hematocrit 37.3, platelets 181,000. CMP is within normal limits. IMPRESSION AND PLAN The patient is a 73-year-old female with relapsed Hodgkin lymphoma. She continues on palliative brentuximab. 1. Relapsed Hodgkin lymphoma. Cycle #6 of brentuximab. This will continue at a 50% dose reduction due to peripheral neuropathy. 2. Peripheral neuropathy. Perhaps slightly improved. She had an acupuncture treatment on her hands and feels that this may have been helpful. 3. Cough. She has known pulmonary fibrosis. Her last CT of the chest was at [facility] in June 2018. Will repeat a CT of the chest at the same center. 4. Restaging. She will undergo PET scan on 06/21/19. 5. Derm. Monitor lesions on hands and notify us if worsened. 6. Followup on 05/21/19 for cycle #7 of treatment. MTDD
[2019-05-21 11:49] LABS: PLATELET COUNT, AUTOMATED 162 K/uL (150-450)
[2019-05-21] MEDS: NS(*) 0.9% 100 ML BAG 100 ML IVPB PRN (12:00)
[2019-05-21] MEDS: ACETAMINOPHEN 325 MG TAB PO PRN (12:20)
[2019-05-21] MEDS: DEXAMETHASONE SOD PHOS 10MG/ML IVP PRN (12:20)
[2019-05-21 13:40] VITALS: BP 131/65
[2019-05-21] MEDS: HEPARIN FLSH (PORT) 500 UN/5ML IVP PRN (13:45)
--- NOTE | 2019-05-22 03:31 | ONCOLOGY FOLLOW UP NOTE ---
EVENT DATE: May 21, 2019 CHIEF COMPLAINT Followup for recurrent Hodgkin lymphoma. HISTORY OF PRESENT ILLNESS Patient is a 73-year-old female who was seen for consideration of cycle #7 of brentuximab. This will continue at a 50% dose reduction due to neuropathy. She is tolerating her treatment fairly well. She has been getting acupuncture for the neuropathy and notes some overall improvement in her hands. Today her biggest issue is that of "bumps" on both palms, left greater than right. She describes these as blisters under the skin, but they have not evolved to such. They are slightly pruritic. She also has noted some swelling, especially on her left ring finger. She believes she has lost weight, although on review of weights today in the clinic, her weight is up 1.5 kg. She is eating very little meat and does not eat dairy. She has always had a "clean diet," and we spent some time discussing calories. She otherwise denies any new complaints. ONCOLOGY HISTORY Patient was diagnosed with mixed-cellularity Hodgkin lymphoma in 2015. She completed five cycles of classic ABVD therapy, but tolerated this poorly and did not complete a total of six cycles. She did have a complete response by report. Unfortunately, she relapsed in August 2018 and required aggressive treatment with ICE. She had significant toxicities from this, along with a long recovery. PET scan in November 2018 showed improvement, although there was a persistent area of disease. Began brentuximab on 01/10/19. She did not want to consider transplant after brentuximab, and is continuing on palliative brentuximab. MEDICAL HISTORY Hodgkin lymphoma, 2015, with relapse in September 2018. FAMILY HISTORY Noncontributory. SOCIAL HISTORY Patient is . They have grown children. She and her live in [place], [place]. She does not smoke. MEDICATIONS None. ALLERGIES No known drug allergies. REVIEW OF SYSTEMS A 12-point review of systems is performed and is negative except as stated above. PHYSICAL EXAMINATION VITAL SIGNS: Weight 53.8 kg, BP 137/68, P 68, R 16, temp 98.0, O2 sat 92%. GENERAL: Patient is a well-developed, well-nourished female in no acute distress. HEAD: Normocephalic, atraumatic. EYES: Sclerae anicteric. MOUTH: Moist mucous membranes. NECK: Supple. No palpable adenopathy. LUNGS: Clear bilaterally. CARDIOVASCULAR: Heart rate regular, 68 per minute. EXTREMITIES: No pedal edema. Mild swelling noted in both hands, left greater than right, especially the left ring finger. NEURO: Nonfocal. DERM: She does have multiple raised papules on both palms, left greater than right, which are increased since 04/30/19. LABORATORY CBC today reveals a WBC of 6.2, hemoglobin 12.4, hematocrit 35.2, platelets 162,000. CMP is within normal limits. Albumin is stable at 3.7. IMPRESSION The patient is a 73-year-old female with relapsed Hodgkin lymphoma. Began palliative brentuximab on 01/10/19. PLAN 1. Relapsed Hodgkin lymphoma. Cycle #7 of brentuximab. This will continue at a 50% dose reduction due to peripheral neuropathy. 2. Peripheral neuropathy. Notes overall improvement, especially in her hands. She is also getting acupuncture, which she believes is helpful. 3. Derm. An increase in raised papules is noted on both palms, left greater than right. There is also swelling noted, especially in the left fourth finger. I briefly discussed treatment with Medrol Dosepak. I have written her this prescription, and she will consider taking it depending on her symptoms. 4. Cough. She has known pulmonary fibrosis. 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 5. Weight. Patient believes she is losing weight. She is not eating meat and eats very little dairy. I asked her to write down her foods for two to three days before her next treatment. Of note, weight in the clinic was actually up 1.5 kg. 6. Restaging. She will undergo PET scan on 06/21/19. 7. Followup on 06/11/19 for cycle #8 of treatment. She will see Dr. Alston on 07/02/19. MTDD
[2019-06-11 11:27] VITALS: BP 137/56
[2019-06-11] MEDS: ACETAMINOPHEN 325 MG TAB PO PRN (12:43)
[2019-06-11] MEDS: DEXAMETHASONE SOD PHOS 10MG/ML IVP PRN (12:43)
[2019-06-11] MEDS: NS(*) 0.9% 100 ML BAG 100 ML IVPB PRN (13:28)
[2019-06-11] MEDS: HEPARIN FLSH (PORT) 500 UN/5ML IVP PRN (14:14)
[2019-06-11 14:15] VITALS: BP 117/71
--- NOTE | 2019-06-12 02:52 | ONCOLOGY FOLLOW UP NOTE ---
EVENT DATE: June 11, 2019 CHIEF COMPLAINT Followup for recurrent Hodgkin lymphoma. HISTORY OF PRESENT ILLNESS Patient is a 73-year-old female who was seen today for consideration of cycle #8 of brentuximab. This will be given at a 50% dose reduction due to peripheral neuropathy. She feels like the neuropathy is fairly stable, more in her hands than her feet, but not interfering with activities of daily living. She has also had a skin reaction on the palms of both hands with some nodular areas. She describes these as blisters, but they are below the surface of the skin. They are not terribly pruritic and have not changed. She will be undergoing PET scan at the end of next week to assess response to treatment. She otherwise denies any new complaints except for some mild fatigue. ONCOLOGY HISTORY Patient was diagnosed with mixed-cellularity Hodgkin lymphoma in 2015. She completed five cycles of classic ABVD therapy, but tolerated this poorly and did not complete a total of six cycles. She did have a complete response by report. Unfortunately, she relapsed in August 2018 and required aggressive treatment with ICE. She had significant toxicities from this, along with a long recovery. PET scan in November 2018 showed improvement, although there was a persistent area of disease. Began brentuximab on 01/10/19. She did not want to consider transplant after brentuximab, and is continuing on palliative brentuximab. MEDICAL HISTORY Hodgkin lymphoma, 2015, with relapse in September 2018. FAMILY HISTORY Father had prostate cancer. SOCIAL HISTORY Patient is . They have grown children. She and her live in [place], [place]. She does not smoke. MEDICATIONS None. ALLERGIES No known drug allergies. REVIEW OF SYSTEMS A 12-point review of systems is performed and is negative except as stated above. PHYSICAL EXAMINATION VITAL SIGNS: Weight 57.4 kg, BP 137/86, P 66, R 16, temp 97.9, O2 sat 94%. GENERAL: Patient is a well-developed, well-nourished female in no acute distress. HEAD: Normocephalic, atraumatic. EYES: Sclerae anicteric. MOUTH: Moist mucous membranes. NECK: Supple. No palpable adenopathy. LUNGS: Slightly diminished in bases but clear bilaterally. CARDIOVASCULAR: Heart rate regular, 66 per minute. EXTREMITIES: Trace pedal edema bilaterally. NEURO: Nonfocal. LABORATORY CBC today reveals a WBC of 6.2, hemoglobin 12.6, hematocrit 36.3, platelets 194,000. CMP is within normal limits. IMPRESSION The patient is a 73-year-old female with relapsed Hodgkin lymphoma. Began palliative brentuximab on 01/10/19. PLAN 1. Relapsed Hodgkin lymphoma. Cycle #8 of brentuximab today. This will continue at a 50% dose reduction due to neuropathy. 2. Neuropathy. Fairly stable. She describes this more in her hands than her feet. She is using acupuncture, which has been helpful. This is not interfering with activities of daily living. 3. Derm. She does have multiple raised nodules on both palms, left greater than right. Left ring finger is somewhat edematous. This does not appear to have progressed. She will monitor closely. 4. Restaging. She will undergo PET scan on 06/21/19. 5. Follow up with Dr. Alston on 07/02/19 to assess response to treatment. MTDD
[2019-07-02 10:55] VITALS: BP 122/67
[2019-07-02] MEDS: NS(*) 0.9% 250 ML BAG 250 ML IVPB PRN (11:15)
[2019-07-02] MEDS: HEPARIN FLSH (PORT) 500 UN/5ML IVP PRN (12:45)
--- NOTE | 2019-07-04 05:01 | ONCOLOGY FOLLOW UP NOTE ---
EVENT DATE: July 02, 2019 CHIEF COMPLAINT/REASON FOR VISIT Miroslava is a pleasant 73-year-old female with recurrent Hodgkin lymphoma, currently on brentuximab, here for followup. HISTORY OF PRESENT ILLNESS Miroslava returns. She is here prior to cycle 7 of brentuximab. These have been given at a 50% dose reduction due to significant peripheral neuropathy. She feels that the neuropathy is worse, and currently rates it an 8/10. She has had other skin side effects with therapy. Since her PET scan one week ago, she has had issues with constipation and gas pain. We discussed [id number] remedies to help improve this in detail. This includes MiraLAX, Gas-X, other. Unfortunately, I reviewed her imaging, which shows mixed response. She did respond significantly initially, but now we have growing areas and evidence of resistant disease. She is not interested in going to [place] for consideration of transplant or more aggressive chemotherapy, although we may need to reconsider that again in the future. She has not yet had immunotherapy with nivolumab, and I believe this would be the most appropriate next step. Family meeting today with extensive [id number] discussion. ONCOLOGY HISTORY Patient was diagnosed with mixed-cellularity Hodgkin lymphoma in 2015. She completed five cycles of classic ABVD therapy, but tolerated this poorly and did not complete a total of six cycles. She did have a complete response by report. Unfortunately, she relapsed in August 2018 and required aggressive treatment with ICE. She had significant toxicities from this, along with a long recovery. PET scan in November 2018 showed improvement, although there was a persistent area of disease. Began brentuximab on 01/10/19. She did not want to consider transplant after brentuximab, and is continuing on palliative brentuximab. MEDICAL HISTORY Hodgkin lymphoma, 2015, with relapse in September 2018. FAMILY HISTORY Father had prostate cancer. SOCIAL HISTORY Patient is . They have grown children. She and her live in [place], [place]. She does not smoke. MEDICATIONS None. ALLERGIES No known drug allergies. REVIEW OF SYSTEMS CONSTITUTIONAL: No fevers or chills. HEENT: No headache or vision changes. CARDIOVASCULAR: No chest pain, dyspnea on exertion, or edema. RESPIRATORY: Positive cough and shortness of breath with exertion. GASTROINTESTINAL: Positive constipation. SKIN: Positive pruritus and blisters, but these have improved. GENITOURINARY: No dysuria or hematuria. MUSCULOSKELETAL: No weakness or joint pain. PSYCHIATRIC: No anxiety or depression. ENDOCRINE: No heat or cold intolerance. Remainder of 14-point review of systems otherwise negative. PHYSICAL EXAMINATION VITAL SIGNS: Blood pressure 122/67, pulse 63, respiratory rate 18, temperature 97.2 Fahrenheit, oxygen saturation 94% on room air. Weight 54.3 kg. Pain 5/10, fatigue 9/10. GENERAL: Stable condition, resting comfortably in the chair today. HEENT: Normocephalic, atraumatic. SKIN: No concerning new lesions. Lymphatic and full exam deferred to amount of time spent in counseling and coordination of care with the family meeting today. IMPRESSION/REPORT/PLAN Ms. Thrasher is a very pleasant 73-year-old female with the following: Relapsed refractory Hodgkin lymphoma. She has failed ABVD, ICE, brentuximab therapy. She is not interested in more aggressive therapy with transplant, and we discussed this some today. She has not yet used nivolumab, which would be an appropriate next regimen. She initially was not sure if she wanted to do anything, and we spent considerable time discussing her goals of care. Her number one priority is spending six weeks in [place] in November. She had this vacation scheduled previously, but had to discontinue it to the cancer therapy. After discussion, I believe she would like to proceed with chemotherapy education to learn about nivolumab and its potential side effects. We discussed them today, including the potential for autoimmune side effects, including but not limited to skin, thyroid, colitis, many others. Serious side effects tend to be rare, but can be quite serious. Most side effects, with the exception of the endocrine/hormonal side effects, tend to improve with time with treatment. After discussion, I believe she would like to move forward with nivolumab. Answered all of her many questions today, as well as questions of the family. I met her daughter today, who presented to understand better the results from the recent PET scan. Answered all of her many questions today. BILLING Return visit level 5. Total time 45 minutes, counseling time 30. MTDD
[~2019-07-04 11:00] MED LIST changes: -NS(*) 0.9% 100 ML BAG 100 ML IVPB PRN
[2019-07-04 11:38] VITALS: BP 130/65
[2019-07-04] MEDS: HEPARIN FLSH (PORT) 500 UN/5ML IVP PRN (11:40)
[2019-07-04] MEDS: NS(*) 0.9% 100 ML BAG 100 ML IVPB PRN (11:40)
[2019-07-04] MEDS ORDERED: NS 0.9% IVPB ONE (12:50)
[2019-07-04] MEDS ORDERED: NIVOLUMAB IVPB ONE (12:50)
[2019-07-04 13:00] VITALS: BP 128/72
--- NOTE | 2019-07-04 16:48 | ONCOLOGY CHEMO TEACHING ---
EVENT DATE: July 04, 2019 DIAGNOSIS Recurrent Hodgkin lymphoma. The patient and her are seen today for chemotherapy teaching. A total of 60 minutes was spent with them, 100% of which was [id number] counseling. HISTORY OF PRESENT ILLNESS Patient is a 73-year-old female who was seen today to initiate treatment with nivolumab. She completed eight cycles of brentuximab, but PET scan showed a mixed response with growing areas of resistance. She feels ready to begin treatment today. Overall, she is doing well. She is disappointed by the need to change her treatment, but understands the rationale. She and her will be going to [facility] on 11/29/19 for a total of six weeks, but understands that she will be able to do this. ONCOLOGY HISTORY Patient was diagnosed with mixed cellularity Hodgkin lymphoma in 2015. She completed five cycles of classic ABVD therapy, but tolerated this poorly, and did not complete a total of six cycles. She did have a complete response by report. Unfortunately, she relapsed in August 2018 and required aggressive treatment with ICE. She had significant toxicities from this along with a long recovery. PET scan in November 2018 showed improvement, although there was a persistent area of disease. Began brentuximab on 01/10/19. She did not want to consider transplant after brentuximab. Completed eight cycles of palliative brentuximab, last on 06/11/19. PET scan on 06/21/19 showed a mixed response with growing areas of resistance. Began nivolumab on 07/04/19. MEDICAL HISTORY Hodgkin lymphoma, 2015, with relapse in September 2018. FAMILY HISTORY Father had prostate cancer. SOCIAL HISTORY Patient is . They have grown children. She and her live in [place], [place]. She does not smoke. MEDICATIONS None. ALLERGIES No known drug allergies. DISCUSSION 1. A total of 60 minutes was spent in counseling today, 100% of which was face to face. At today's therapy teaching session, we discussed her diagnosis as well as the planned chemotherapy regimen and toxicities associated with nivolumab. Handouts of this drug were provided and reviewed in detail. 2. Side effects and toxicities of immunotherapy agents included, but were not limited to: A. GI side effects. Discussed the possibility of colitis/significant diarrhea associated with this drug. I recommended she take Imodium up to eight per day, but notify us if this were not controlled within one to two days. If she were to have constipation, recommended MiraLAX. B. Pulmonary. Reviewed that this medication can cause pneumonitis. She will notify us if she develops cough, wheezing, or excessive shortness of breath. C. Endocrinopathies. Thyroid function tests are pending today. These will be repeated routinely. She will be monitored for any symptoms of thyroid issues or adrenal insufficiency. D. Hepatitis. Reviewed that this can cause abnormalities in the liver. CMP will be monitored routinely. She will notify us if she develops any upper abdominal pain, light-colored stool, or yellow skin/eyes. E. Nephritis. Discussed that this can affect the kidneys. CMP will be checked routinely. She will notify us if she develops any issues related to urinary frequency or lower extremity swelling. F. Fatigue. Discussed that this is one of the most common side effects of treatment. I have encouraged her to remain as active as possible, taking frequent rests as needed. 3. I have instructed the patient to call our office if she is prescribed any new medications. It is recommended that multiple supplements or herbal medications may not be taken as these may interfere with the action of the chemotherapy. 4. Discussed dietary issues associated with chemotherapy including anorexia and changes in taste. A handout of nutrition information is given. 5. Office contact information ([phone]) is given. I have encouraged the patient to call with any issues regarding treatment. 6. Patient will begin cycle #1 of nivolumab today. She feels ready to begin today's treatment. She will receive this on an every two-week basis for the first three months and likely transition to monthly dosing. MTDD
== END 2019-07-12 ==
LOC: ONC 11:00
PROVIDERS: ATTEND Internal Medicine
DX: C81.21 Mixed cellularity Hodgkin lymphoma, lymph nodes of head, face, and neck (principal); R53.83 Other fatigue; G62.9 Polyneuropathy, unspecified; R05 Cough
CPT/HCPCS: 36591; 83735; 84439; 84443; 84480; 85025; 85027; 96365; 96375; A9270; G0463; J1100; J1642; J7050; J9042; J9299; 82040; 82247; 82310; 82374; 82435; 82565; 82947; 84075; 84132; 84155; 84295; 84450; 84460; 84520; 99212